=== PATIENT | male | born 1945 ===

== ENCOUNTER 2016-10-02 11:04 | Inpatient (IN) | payer MEDICARE, MEDICAID ==
[2016-10-02 11:20] VITALS: BMI 26.5
[2016-10-02 12:15] LABS: ADD MANUAL DIFF? NO
--- NOTE | 2016-10-02 12:15 | ED PDOC ---
Arrival/HPI - General Chief Complaint: Psychiatric Evaluation Time Seen by Provider: 10/02/16 11:30 Historian: Patient, Detention, EMS - History of Present Illness Narrative History of Present Illness (Text): 10/02/16 11:55 A 71 year old male is brought into the emergency department via EMS from [facility] for suicidal ideation. According to care home the patient became violent and had combative behavior. Patient states he became violent because he was upset about not receiving his full disability check. Patient denies any fever, chills, or other physical complaints. PMD: Dr. Javier Time/Duration: Prior to Arrival Symptom Onset: Sudden Symptom Course: Other Quality: Other Activities at Onset: Rest Context: Home Past Medical History - Provider Review Nursing Documentation Reviewed: Yes - Neurological Hx Dementia: Yes Hx Syncope: Yes Other/Comment: hydrocephalus, senior svp shunt - Psychiatric Hx Substance Use: (unable to obtain) Other/Comment: Schizoaffective disorder Family/Social History - Physician Review Nursing Documentation Reviewed: Yes Family/Social History: Unknown Family HX Smoking Status: Unknown If Ever Smoked Hx Alcohol Use: (unable to obtain) Hx Substance Use: (unable to obtain) Allergies/Home Meds Allergies/Adverse Reactions: Allergies No Known Allergies Allergy (Verified 10/02/16 11:37) Home Medications: Home Meds Medication Instructions Recorded Confirmed Acetaminophen [Non-Aspirin Pain 650 mg PO PRN PRN 10/02/16 10/02/16 Relief] Donepezil [Aricept] 10 mg PO HS 10/02/16 10/02/16 LORazepam [Ativan] 2 mg PO BID 10/02/16 10/02/16 Quetiapine Fumarate [Seroquel] 25 mg PO HS 10/02/16 10/02/16 Quetiapine Fumarate [Seroquel] 100 mg PO HS 10/02/16 10/02/16 Review of Systems - Physician Review All systems were reviewed & negative as marked: Yes - Review of Systems Constitutional: absent: Fevers Respiratory: absent: SOB Cardiovascular: absent: Chest Pain Gastrointestinal: absent: Abdominal Pain Physical Exam Vital Signs Reviewed: Yes Vital Signs Temp Pulse Resp BP Pulse Ox 10/02/16 17:23 65 18 128/68 96 10/02/16 16:31 66 18 131/65 95 10/02/16 15:20 65 18 133/63 95 10/02/16 13:02 68 18 135/65 95 10/02/16 11:19 98.3 F 70 16 138/67 95 Temperature: Afebrile Blood Pressure: Normal Pulse: Regular Respiratory Rate: Normal Appearance: Positive for: Well-Appearing, Non-Toxic, Comfortable Pain Distress: None Mental Status: Positive for: Alert and Oriented X 3 - Systems Exam Head: Present: Atraumatic, Normocephalic, Other (ventric compressible) Pupils: Present: PERRL Extroacular Muscles: Present: EOMI Conjunctiva: Present: Normal Mouth: Present: Moist Mucous Membranes Neck: Present: Normal Range of Motion Respiratory/Chest: Present: Clear to Auscultation, Good Air Exchange. No: Respiratory Distress, Accessory Muscle Use Cardiovascular: Present: Regular Rate and Rhythm, Normal S1, S2. No: Murmurs Abdomen: Present: Normal Bowel Sounds. No: Tenderness, Distention, Peritoneal Signs Back: Present: Normal Inspection Upper Extremity: Present: Normal Inspection. No: Cyanosis, Edema Lower Extremity: Present: Normal Inspection. No: Edema Neurological: Present: GCS=15, CN II-XII Intact, Speech Normal Skin: Present: Warm, Dry, Normal Color. No: Rashes Psychiatric: Present: Alert, Oriented x 3, Normal Insight, Normal Concentration Medical Decision Making ED Course and Treatment: 10/02/16 11:55 Impression: A 71 year old male sent in for aggressive behaviour. Plan: -- EKG -- Chest X-ray -- Labs -- Urinalysis Progress Notes: EKG: Ordered, reviewed, and independently interpreted the EKG. Rate : 66 BPM Rhythm : NSR Interpretation : Normal interval, Normal [place], No ST/T changes. Comparison : No previous EKG for comparison. 10/02/16 12:34 Patient is medically cleared for psychiatric evaluation. 10/02/16 12:42 Chest X-ray: Creator : Ya Gould V. COMPARISON: No prior. FINDINGS: LUNGS: No consolidation. Left paratracheal calcified lymph node versus name left apical granuloma 1.2 cm. Calcified left thyroid nodules another consideration PLEURA: No significant pleural effusion identified, no pneumothorax apparent. CARDIOVASCULAR: Normal heart size. Pulmonary vasculature appears are borderline increased. Right internal jugular vein catheter tip in superior vena cava - right atrial junction. OSSEOUS STRUCTURES: Mild bilateral shoulder arthrosis. Moderate thoracic spondylosis VISUALIZED UPPER ABDOMEN: Normal. OTHER FINDINGS: Left paratracheal calcified lymph node versus name left apical granuloma 1.2 cm. A calcified left thyroid nodules.another consideration IMPRESSION: No consolidation. Probable mild pulmonary venous congestion. Central line as above. No pneumothorax. Probable left paratracheal calcified lymph node. A calcified left thyroid nodule is another consideration . 10/02/16 14:[address]: Creator : Mayur Mckenzie MD COMPARISON: None available. FINDINGS: HEMORRHAGE: No intracranial hemorrhage. BRAIN: No mass effect or edema. No atrophy or chronic microvascular ischemic changes. VENTRICLES: Unremarkable. No hydrocephalus. There is a ventricular shunt from a right parietal approach the crosses the lateral ventricles and terminates on the left. CALVARIUM: Unremarkable. PARANASAL SINUSES: Unremarkable as visualized. No significant inflammatory changes. MASTOID AIR CELLS: Unremarkable as visualized. No inflammatory changes. OTHER FINDINGS: None. IMPRESSION: No acute findings 10/02/16 14:30 Shuntogram: Creator : Mayur Mckenzie MD COMPARISON: FINDINGS: There is no evidence of a kink or fracture in the shunt catheter. Catheter terminates in the right upper quadrant of the abdomen IMPRESSION: Negative study 10/02/16 16:58 Patient is comfortable and in no acute distress. CXR reading by radiologist says central line but patient does not have a central line. Patient does have a ventric. A shuntagram was completed and it's a negative study. There is a normal CT and good compression of ventric. Patient denies any pain. PES is pending [facility] Screening. 10/02/16 18:55 Case signed out to Dr. Frank to f/u PES screening and reevaluate. - Lab Interpretations Lab Results: 10/02/16 12:02 10/02/16 12:02 Lab Results 10/02/16 12:02: Alcohol, Quantitative < 10 10/02/16 12:02: Salicylates < 1 L, Acetaminophen < 10.0 L 10/02/16 12:02: Sodium 143, Potassium 4.2, Chloride 101, Carbon Dioxide 31, Anion Gap 15, BUN 18, Creatinine 1.1, Est GFR ( Amer) > 60, Est GFR (Non- Af Amer) > 60, Random Glucose 93, Calcium 10.1, Total Bilirubin 0.6, AST 20, ALT 28, Alkaline Phosphatase 82, Total Creatine Kinase 51, Total Protein 8.1, Albumin 4.5, Globulin 3.6, Albumin/Globulin Ratio 1.3 10/02/16 12:02: WBC 7.4, RBC 4.33, Hgb 13.5 L, Hct 40.7 L, MCV 94.0, MCH 31.2, MCHC 33.2, RDW 14.9 H, Plt Count 258, MPV 11.2 H, Gran % 65.5, Lymph % (Auto) 20.5 L, [place] % (Auto) 12.1 H, Eos % (Auto) 1.6, Baso % (Auto) 0.3, Gran # 4.82, Lymph # 1.5, [place] # 0.9 H, Eos # 0.1, Baso # 0.02 I have reviewed the lab results: Yes - RAD Interpretation Radiology Orders: 10/02/16 12:03 CHEST PORTABLE [RAD] Stat 10/02/16 12:57 HEAD W/O CONTRAST [CT] Stat 10/02/16 13:00 SHUNTOGRAM [RAD] Stat - Scribe Statement The provider has reviewed the documentation as recorded by the Elenaibe Adrienne Vaughn Provider Scribe Attestation: All medical record entries made by the Scribe were at my direction and personally dictated by me. I have reviewed the chart and agree that the record accurately reflects my personal performance of the history, physical exam, medical decision making, and the department course for this patient. I have also personally directed, reviewed, and agree with the discharge instructions and disposition. Disposition/Present on Arrival - Present on Arrival Any Indicators Present on Arrival: No History of DVT/PE: No History of Uncontrolled Diabetes: No Urinary Catheter: No History of Decub. Ulcer: No History Surgical Site Infection Following: None - Disposition Have Diagnosis and Disposition been Completed?: No Diagnosis: Psychiatric care Disposition Time: 18:57 Condition: FAIR Referrals: Blanquita Holley MD [Primary Care Provider] - Follow up with primary
[2016-10-02 12:20] LABS: BASO # 0.02 K/mm3 (0.0-2.0); BASO % 0.3 % (0.0-3.0); EOS # 0.1 (0.0-0.7); EOS % 1.6 % (1.5-5.0); GRAN # 4.82 (1.4-6.5); GRAN % 65.5 % (50.0-68.0); HEMATOCRIT 40.7 % (42.0-52.0); LYMPH # 1.5 (1.2-3.4); LYMPH % 20.5 % (22.0-35.0); MEAN CORPUSCULAR HEMOGLOBIN 31.2 pg (25.0-35.0); MEAN CORPUSCULAR HGB CONC 33.2 g/dl (31.0-37.0); MEAN PLATELET VOLUME 11.2 fl (7.0-11.0); MONO # 0.9 (0.1-0.6); MONO % 12.1 % (1.0-6.0); PLATELET COUNT 258 10^3/uL (120.0-450.0); RED CELL DISTRIBUTION WIDTH 14.9 % (11.5-14.5); WHITE BLOOD COUNT 7.4 10^3/ul (4.5-11.0)
[2016-10-02 12:30] LABS: ALB/GLOB RATIO 1.3 (1.1-1.8); ALKALINE PHOSPHATASE 82 U/L (38-133); ALT/SGPT 28 U/L (7-56); AST/SGOT 20 U/L (15-59); BILIRUBIN,TOTAL 0.6 mg/dL (0.2-1.3); BLOOD UREA NITROGEN 18 mg/dL (7-21); CALCIUM 10.1 mg/dL (8.4-10.5); CARBON DIOXIDE 31 mmol/L (21-33); CHLORIDE 101 mmol/L (98-107); GFR AFRICAN-AMERICAN > 60; GLUCOSE,RANDOM 93 mg/dL (70-110); POTASSIUM 4.2 mmol/L (3.6-5.0); SODIUM 143 mmol/L (132-148); TOTAL PROTEIN 8.1 g/dL (5.8-8.3)
--- NOTE | 2016-10-02 12:43 | RAD ---
HISTORY: psych COMPARISON: No prior. FINDINGS: LUNGS: No consolidation. Left paratracheal calcified lymph node versus name left apical granuloma 1.2 cm. Calcified left thyroid nodules another consideration PLEURA: No significant pleural effusion identified, no pneumothorax apparent. CARDIOVASCULAR: Normal heart size Pulmonary vasculature appears are borderline increased. Right internal jugular vein catheter tip in superior vena cava - right atrial junction. OSSEOUS STRUCTURES: Mild bilateral shoulder arthrosis. Moderate thoracic spondylosis VISUALIZED UPPER ABDOMEN: Normal. OTHER FINDINGS: Left paratracheal calcified lymph node versus name left apical granuloma 1.2 cm. A calcified left thyroid nodules.another consideration IMPRESSION: No consolidation. Probable mild pulmonary venous congestion. Central line as above. No pneumothorax. Probable left paratracheal calcified lymph node. A calcified left thyroid nodule is another consideration .
--- NOTE | 2016-10-02 14:00 | CT ---
PROCEDURE: CT HEAD WITHOUT CONTRAST. HISTORY: agitation COMPARISON: None available. TECHNIQUE: Axial computed tomography images were obtained through the head/brain without intravenous contrast. Radiation dose: Total exam DLP = 688 mGy-cm. This CT exam was performed using one or more of the following dose reduction techniques: Automated exposure control, adjustment of the mA and/or kV according to patient size, and/or use of iterative reconstruction technique. FINDINGS: HEMORRHAGE: No intracranial hemorrhage. BRAIN: No mass effect or edema. No atrophy or chronic microvascular ischemic changes. VENTRICLES: Unremarkable. No hydrocephalus. There is a ventricular shunt from a right parietal approach the crosses the lateral ventricles and terminates on the left. CALVARIUM: Unremarkable. PARANASAL SINUSES: Unremarkable as visualized. No significant inflammatory changes. MASTOID AIR CELLS: Unremarkable as visualized. No inflammatory changes. OTHER FINDINGS: None. IMPRESSION: No acute findings
--- NOTE | 2016-10-02 14:27 | RAD ---
PROCEDURE: Shuntogram HISTORY: evaluuate shunt placement COMPARISON: TECHNIQUE: AP and lateral views of the skull and neck and AP views of the chest and abdomen were obtained to evaluate shunt integrity FINDINGS: There is no evidence of a kink or fracture in the shunt catheter. Catheter terminates in the right upper quadrant of the abdomen IMPRESSION: Negative study
--- NOTE | 2016-10-02 19:37 | ED PDOC ---
Physical Exam Vital Signs Reviewed: Yes Vital Signs Temp Pulse Resp BP Pulse Ox 10/03/16 06:00 72 18 136/72 96 10/03/16 02:31 97.6 F 64 18 140/75 98 10/02/16 23:46 51 L 16 129/72 98 10/02/16 19:04 64 18 125/69 96 10/02/16 17:23 65 18 128/68 96 10/02/16 16:31 66 18 131/65 95 10/02/16 15:20 65 18 133/63 95 10/02/16 13:02 68 18 135/65 95 10/02/16 11:19 98.3 F 70 16 138/67 95 Temperature: Afebrile Blood Pressure: Normal Pulse: Regular Respiratory Rate: Normal Appearance: Positive for: Well-Appearing, Non-Toxic, Comfortable Pain Distress: None Mental Status: Positive for: Alert and Oriented X 3 Medical Decision Making ED Course and Treatment: 10/02/16 19:30 Patient medically cleared prior. Pending PES evaluation and final disposition. 10/03/16 07:00 Pt. was seen and evaluated by [facility] screener.Not a candidate for transfer.Pt. to be reevaluated by psychiatrist Dr. Quintanilla in the ED as per PES.Case endorsed to . - Lab Interpretations Lab Results: 10/02/16 12:02 10/02/16 12:02 Lab Results 10/02/16 12:02: Alcohol, Quantitative < 10 10/02/16 12:02: Salicylates < 1 L, Acetaminophen < 10.0 L 10/02/16 12:02: Sodium 143, Potassium 4.2, Chloride 101, Carbon Dioxide 31, Anion Gap 15, BUN 18, Creatinine 1.1, Est GFR ( Amer) > 60, Est GFR (Non- Af Amer) > 60, Random Glucose 93, Calcium 10.1, Total Bilirubin 0.6, AST 20, ALT 28, Alkaline Phosphatase 82, Total Creatine Kinase 51, Total Protein 8.1, Albumin 4.5, Globulin 3.6, Albumin/Globulin Ratio 1.3 10/02/16 12:02: WBC 7.4, RBC 4.33, Hgb 13.5 L, Hct 40.7 L, MCV 94.0, MCH 31.2, MCHC 33.2, RDW 14.9 H, Plt Count 258, MPV 11.2 H, Gran % 65.5, Lymph % (Auto) 20.5 L, [place] % (Auto) 12.1 H, Eos % (Auto) 1.6, Baso % (Auto) 0.3, Gran # 4.82, Lymph # 1.5, [place] # 0.9 H, Eos # 0.1, Baso # 0.02 10/02/16 00:35: Urine Opiates Screen Negative, Urine Methadone Screen Negative, Ur Barbiturates Screen Negative, Ur Phencyclidine Scrn Negative, Ur Amphetamines Screen Negative, U Benzodiazepines Scrn Negative, U Oth Cocaine Metabols Negative, U Cannabinoids Screen Negative 10/02/16 00:35: Urine Color Yellow, Urine Appearance Clear, Urine pH 6.5, Ur Specific [place] 1.020, Urine Protein Negative, Urine Glucose (UA) Negative, Urine Ketones Negative, Urine Blood Small H, Urine Nitrate Negative, Urine Bilirubin Negative, Urine Urobilinogen 0.2, Ur Leukocyte Esterase Negative, Urine RBC 0 - 2, Urine WBC 0 - 2, Ur Epithelial Cells 0 - 2, Urine Other Usperm - RAD Interpretation Radiology Orders: 10/02/16 12:03 CHEST PORTABLE [RAD] Stat 10/02/16 12:57 HEAD W/O CONTRAST [CT] Stat 10/02/16 13:00 SHUNTOGRAM [RAD] Stat - Scribe Statement The provider has reviewed the documentation as recorded by the Muna Mckeon Provider Scribe Attestation: All medical record entries made by the Elenaibarthur were at my direction and personally dictated by me. I have reviewed the chart and agree that the record accurately reflects my personal performance of the history, physical exam, medical decision making, and the department course for this patient. I have also personally directed, reviewed, and agree with the discharge instructions and disposition. Disposition/Present on Arrival - Present on Arrival Any Indicators Present on Arrival: No History of DVT/PE: No History of Uncontrolled Diabetes: No Urinary Catheter: No History of Decub. Ulcer: No History Surgical Site Infection Following: None - Disposition Have Diagnosis and Disposition been Completed?: No Diagnosis: Psychiatric care Disposition Time: 07:20 Patient Problems: Current Active Problems Problem Status Onset Psychiatric care Acute Condition: STABLE Referrals: Blanquita Holley MD [Primary Care Provider] - Follow up with primary
[2016-10-03 01:05] LABS: PH,URINE 6.5 (4.7-8.0); URINE BILIRUBIN NEGATIVE (NEGATIVE); URINE BLOOD SMALL (NEGATIVE); URINE GLUCOSE (UA) NEGATIVE (NEGATIVE); URINE KETONE NEGATIVE (NEGATIVE); URINE LEUKOCYTE ESTERASE NEGATIVE Leu/uL (NEGATIVE); URINE PROTEIN NEGATIVE mg/dL (<30 mg/dL); URINE UROBILINOGEN 0.2 E.U./dL (<1 E.U./dL)
[2016-10-03 01:07] LABS: URINE APPEARANCE CLEAR (CLEAR); URINE COLOR YELLOW (YELLOW)
[2016-10-03 01:12] LABS: URINE EPITHELIAL CELLS 0 - 2 /hpf (0-5); URINE RBC 0 - 2 /hpf (0-2); URINE WBC 0 - 2 /hpf (0-6)
--- NOTE | 2016-10-03 07:57 | ED PDOC ---
Physical Exam Vital Signs Reviewed: Yes Vital Signs Temp Pulse Resp BP Pulse Ox 10/03/16 06:00 72 18 136/72 96 10/03/16 02:31 97.6 F 64 18 140/75 98 10/02/16 23:46 51 L 16 129/72 98 10/02/16 19:04 64 18 125/69 96 10/02/16 17:23 65 18 128/68 96 10/02/16 16:31 66 18 131/65 95 10/02/16 15:20 65 18 133/63 95 10/02/16 13:02 68 18 135/65 95 10/02/16 11:19 98.3 F 70 16 138/67 95 Temperature: Afebrile Blood Pressure: Normal Pulse: Regular Respiratory Rate: Normal Medical Decision Making ED Course and Treatment: 10/03/16 07:00 Patient endorsed to me by Dr. Frank. Pending evaluation by psychiatrist Dr. Quintanilla. 10/03/16 09:29 Dr. Ashley Le evaluated patient and recommended monitoring for altered mental status and psych. Patient accepted by Dr. Boykin for altered mental status. - Lab Interpretations Lab Results: 10/02/16 12:02 10/02/16 12:02 Lab Results 10/02/16 12:02: Alcohol, Quantitative < 10 10/02/16 12:02: Salicylates < 1 L, Acetaminophen < 10.0 L 10/02/16 12:02: Sodium 143, Potassium 4.2, Chloride 101, Carbon Dioxide 31, Anion Gap 15, BUN 18, Creatinine 1.1, Est GFR ( Amer) > 60, Est GFR (Non- Af Amer) > 60, Random Glucose 93, Calcium 10.1, Total Bilirubin 0.6, AST 20, ALT 28, Alkaline Phosphatase 82, Total Creatine Kinase 51, Total Protein 8.1, Albumin 4.5, Globulin 3.6, Albumin/Globulin Ratio 1.3 10/02/16 12:02: WBC 7.4, RBC 4.33, Hgb 13.5 L, Hct 40.7 L, MCV 94.0, MCH 31.2, MCHC 33.2, RDW 14.9 H, Plt Count 258, MPV 11.2 H, Gran % 65.5, Lymph % (Auto) 20.5 L, [place] % (Auto) 12.1 H, Eos % (Auto) 1.6, Baso % (Auto) 0.3, Gran # 4.82, Lymph # 1.5, [place] # 0.9 H, Eos # 0.1, Baso # 0.02 10/02/16 00:35: Urine Opiates Screen Negative, Urine Methadone Screen Negative, Ur Barbiturates Screen Negative, Ur Phencyclidine Scrn Negative, Ur Amphetamines Screen Negative, U Benzodiazepines Scrn Negative, U Oth Cocaine Metabols Negative, U Cannabinoids Screen Negative 10/02/16 00:35: Urine Color Yellow, Urine Appearance Clear, Urine pH 6.5, Ur Specific [place] 1.020, Urine Protein Negative, Urine Glucose (UA) Negative, Urine Ketones Negative, Urine Blood Small H, Urine Nitrate Negative, Urine Bilirubin Negative, Urine Urobilinogen 0.2, Ur Leukocyte Esterase Negative, Urine RBC 0 - 2, Urine WBC 0 - 2, Ur Epithelial Cells 0 - 2, Urine Other Usperm - RAD Interpretation Radiology Orders: 10/02/16 12:03 CHEST PORTABLE [RAD] Stat 10/02/16 12:57 HEAD W/O CONTRAST [CT] Stat 10/02/16 13:00 SHUNTOGRAM [RAD] Stat - Medication Orders Current Medication Orders: Donepezil HCl (Aricept) 10 mg PO HS KATHERYN Quetiapine Fumarate (Seroquel) 150 mg PO HS KATHERYN PRN Reason: Protocol Valproate Sodium (Depakene) 250 mg PO TID KATHERYN Ziprasidone (Geodon Inj) 20 mg IM Q8H PRN; Protocol PRN Reason: severe agiation Zolpidem Tartrate (Ambien) 5 mg PO HS PRN; Protocol PRN Reason: Insomnia Discontinued Medications Diphenhydramine HCl (Benadryl) 25 mg IM STAT STA Stop: 10/03/16 08:49 Last Admin: 10/03/16 09:10 Dose: 25 mg Ziprasidone (Geodon Inj) 20 mg IM STAT STA PRN Reason: Protocol Stop: 10/03/16 08:39 Last Admin: 10/03/16 09:10 Dose: 20 mg Disposition/Present on Arrival - Present on Arrival Any Indicators Present on Arrival: No History of DVT/PE: No History of Uncontrolled Diabetes: No Urinary Catheter: No History of Decub. Ulcer: No History Surgical Site Infection Following: None - Disposition Have Diagnosis and Disposition been Completed?: Yes Diagnosis: Psychiatric care, Altered mental status Disposition Time: 09:30 Patient Plan: Admission Patient Problems: Current Active Problems Problem Status Onset Psychiatric care Acute Condition: FAIR Referrals: Blanquita Holley MD [Primary Care Provider] - Follow up with primary
[2016-10-03] MEDS ORDERED: DiphenhydrAMINE 50 mg/ml Inj IM STA (08:48)
[2016-10-03 13:21] LABS: T4 8.8 ug/dL (5.5-11.0)
[2016-10-03 13:35] LABS: THYROID STIMULATING HORMONE 1.56 mIU/mL (0.46-4.68)
--- NOTE | 2016-10-03 13:50 | CON ---
DATE: 10/03/2016 HISTORY OF PRESENT ILLNESS: Shortly, the patient is a 71-year-old male who was [facility] jail for evaluation of altered mental status as well as psychotic symptoms and possible swain icidal or homicidal ideations. The patient refused to sign consent for treatment. At the same time, the patient lacks capacity to do so. This commercial insurance underwriter initiated [facility] screening pro cess. The patient was evaluated and was not accepted by them. At present moment, this commercial insurance underwriter had no other choice than suggest medical admission for altered mental status. The patient was seen in the Emergency Room today together with Dr. Martinez. The patient presented to be confused, agitated, has soft wrist restraints. The patient is acutely psychotic, said that he is [place] of God. Also the rachel ent is paranoid, saying that people are after him and they are going to kill him and before they will do so, he will kill people. At the same time, the patient presented with pressured speech. As per report from the jail, the patient has history of bipolar disorder. The patient was on Seroqu el 125 mg at the nighttime. Medical-martin the patient is having Alzheimer's dementia. The patient is on Aricept. This commercial insurance underwriter reviewed vital signs, seems to be stable. Temperature 97.6, pulse 72, blood pressure 136 /72, respiration 18, oxygen saturation 96. MEDICATIONS: Reviewed. The patient was on Seroquel 125 mg at the nighttime and Aricept 10 mg at the nighttime. This commercial insurance underwriter also will implement Depakote 250 three times a day as well as Ambien as well as p.r.n. medication of Geodon and Ativan and Benadryl. The patient is in acute distress, screaming and yelling at top of his lungs; seems to be a danger to self and others. Will give him an injection of Geodon 20 mg as well as Benadryl. MENTAL STATUS EXAMINATION: The patient presented to be in acute distress, agitated, screaming, yelli ng. The patient was not able to provide any history. The patient presented to be psychotic, delusio nal and paranoid, verbalized thoughts of killing others and killing himself. Insight and judgment ar e lacking. Impulses are unpredictable. IMPRESSION: Altered mental status. Rule out acute exacerbation of bipolar disorder with psychosis. The patient has Alzheimer's dementia. PLAN: Suggest medical admission because patient lacks capacity to sign himself in. Medications were ordered, p.r.n. medication will be given. Seroquel was increased to 150 at the night time, Depakote 250 mg 3 times a day as well as Ativan, Benadryl, and Ambien. This commercial insurance underwriter will follow up on this pa tient on the medical side. Thank you very much for letting me participate in care of your patient. Ashley Mojica MD cc: [id number] TT: 10/03/2016 13:49:47 Confirmation # [id number] Dictation # [id number] jn
--- NOTE | 2016-10-03 15:33 | HP ---
HISTORY OF PRESENT ILLNESS: This 71-year-old male was examined in the Emergency Room, having presented to the [facility] almost 24 hours earlier for evaluation of agitation. Apparently upon further discussion with Dr. Ashley Mojica, the psychiatrist, she was unable to have the patient involuntarily admitted to the [facility] psychiatric berry and states that he could not be admitted to the [facility] voluntary berry because, in an acute psychotic state, he would not sign admission papers. Therefore, the patient will be admitted to the medical/surgical berry with a 1:1 sitter for psychiatric treatment of his acute psychosis. The patient apparently is a resident of the [facility] in [place], [place] , near the [facility] and was brought by emergency transport to [facility] for further evaluation of agitation. On review of his medical chart, his outpatient medication includes Seroquel 150 mg p.o. at bedtime, Ativan 2 mg b.i.d., Aricept 10 mg at bedtime. ALLERGIES: On review of the chart, he has no known allergies to medication. He is a poor historian. He is acutely psychotic. REVIEW OF SYSTEMS: On further questioning: HEAD: Denied headache. EYES: Denied any change in visual acuity. EARS: There was no hearing loss. THROAT: There was no swallowing difficulty. NECK: There was no stiffness. CARDIOVASCULAR: There was no complaint of chest pain or shortness of breath. PULMONARY: No hemoptysis. GASTROINTESTINAL: No hematemesis or melena. GENITOURINARY: He was incontinent of urine. VASCULAR: No reports of claudication. PSYCHOLOGICAL: He has chronic paranoid schizophrenia and psychosis as well as dementia with agitation. NEUROLOGICAL: No knowledge of stroke. ENDOCRINE: No reports of diabetes. SKIN: No reports of rash. FAMILY HISTORY: Noncontributory. SOCIAL HISTORY: He is a current nondrinker, nonsmoker, non-IV drug misuser. He is a long-term resident of [facility]. PHYSICAL EXAMINATION: VITAL SIGNS: Temperature 98, respirations 16, pulse 68, blood pressure 128/88 with a pulse ox of 99% on room air. HEENT: Head is normocephalic, atraumatic. Eyes: No icterus. Ears clear. Throat not injected. NECK: Supple. HEART: Regular S1, S2. LUNGS: Clear. ABDOMEN: Soft, nontender, no palpable organomegaly, no rebound, no guarding, no tenderness. EXTREMITIES: No clubbing, no cyanosis, no edema. SKIN: Without rash. NEUROLOGIC: Able to move all 4 extremities. PSYCHOLOGICAL: Easily agitated, acutely psychotic. VASCULAR: Legs warm to touch. LABORATORY DATA: White count 7400, hemoglobin 13.5, hematocrit 40.7, MCV 94 and platelets 258,000. Sodium 143, K 4.2, chloride 101, bicarb 31, BUN 18, creatinine 1.1, random blood sugar is 93. Bilirubin 0.6, AST 20, ALT 28, alk phos 82. Urine was unremarkable and drug toxicology screen was negative. Head CT showed no acute findings. Chest x-ray showed no consolidation, no pneumothorax, questionable left thyroid calcified nodule. Shuntogram done by Dr. Mayur Correa from radiology showed no fracture of the shunt catheter. IMPRESSION: A 71-year-old male with long time paranoid schizophrenia, psychosis , now with decompensated psychosis in need of psychiatric intervention who was unable to find voluntary admission and was not accepted for involuntary admission at the [facility], who will be placed on the medical berry with a 1:1 sitter and have all psychotropics outlined by Dr. Ashley Mojica which, at present, include Seroquel 150 mg p.o. at bedtime, Geodon 20 mg IM q. 8 hours p.r.n. agitation. The patient was given a stat dose of Geodon 20 mg IM this a.m. Valproic acid 250 mg p.o. b.i.d., Aricept 10 mg at bedtime and Ambien 5 mg p.o. at bedtime p.r.n. insomnia. She will monitor his clinical progress and hopefully accept him to the psychiatric berry when clinically stable. His overall prognosis remains guarded at present and he will be treated in a conservative, compassionate, supportive way. Greater than fifty minutes was spent in the care of this patient today. All of this has been discussed in detail with the nursing staff involved in his care. Celeste Boykin MD cc: [id number] TT: 10/03/2016 15:31:53 tn MTDD
[2016-10-03] MEDS ORDERED: Pneumococcal 23-Valent Vaccine IM ONE (19:03)
--- NOTE | 2016-10-03 23:29 | CARD ---
APPROVED REPORT EKG Measurement Heart [id number] <Conclusion> Normal sinus rhythm Normal ECG
--- NOTE | 2016-10-04 04:10 | CP.PCM.PN ---
Subjective - Date & Time of Evaluation Date of Evaluation: 10/04/16 Time of Evaluation: 04:08 - Subjective Subjective: Nurse Olman called to renew bilateral wrist restraints. Patient was seen at bedside. States that he is in [place]. As per Sitter,he had been combative in the previous shift. Has been quiet this shift. Tries to get out bed. Yells. Pulling. Intermittently. 71 year old male was admitted for agitation. Has PMH of psychosis, paranoid schizophrenia, borderline anemia, Alzheimer's dementia. Objective - Vital Signs/Intake and Output Vital Signs (last 24 hours): Temp Pulse Resp BP Pulse Ox 98.0 F 68 16 128/88 96 10/03/16 18:42 10/03/16 18:42 10/03/16 18:42 10/03/16 18:42 10/03/16 10:42 Intake and Output: 10/03/16 10/04/16 18:59 06:59 Output Total 500 Balance -500 - Medications Medications: Current Medications Donepezil HCl (Aricept) 10 mg PO HS KATHERYN Last Admin: 10/03/16 21:53 Dose: 10 mg Quetiapine Fumarate (Seroquel) 150 mg PO HS KATHERYN PRN Reason: Protocol Last Admin: 10/03/16 21:53 Dose: 150 mg Valproate Sodium (Depakene) 250 mg PO TID KATHERYN Last Admin: 10/03/16 18:41 Dose: Not Given Ziprasidone (Geodon Inj) 20 mg IM Q8H PRN; Protocol PRN Reason: severe agiation Last Admin: 10/03/16 16:20 Dose: 20 mg Zolpidem Tartrate (Ambien) 5 mg PO HS PRN; Protocol PRN Reason: Insomnia Last Admin: 10/03/16 21:54 Dose: 5 mg - Constitutional Appears: No Acute Distress - Head Exam Head Exam: ATRAUMATIC, NORMAL INSPECTION, NORMOCEPHALIC - Eye Exam Eye Exam: Normal appearance - ENT Exam ENT Exam: Normal External Ear Exam - Neck Exam Neck Exam: Normal Inspection - Respiratory Exam Respiratory Exam: NORMAL BREATHING PATTERN - Cardiovascular Exam Cardiovascular Exam: absent: JVD - GI/Abdominal Exam GI & Abdominal Exam: absent: Distended - Rectal Exam Rectal Exam: Deferred - Extremities Exam Extremities Exam: Normal Inspection - Back Exam Back Exam: NORMAL INSPECTION - Neurological Exam Neurological Exam: Altered - Psychiatric Exam Psychiatric exam: Agitated - Skin Skin Exam: Normal Color Assessment and Plan - Assessment and Plan (Free Text) Assessment: Intermittent agitation. Alzheimer's dementia. Anemia. Paranoid schizophrenia. Plan: Bilateral wrist restraints were renewed. Continue present management.
[2016-10-04 10:34] VITALS: BP 132/79; PULSE 61; RESP 18; TEMP 98.4; O2SAT 94
--- NOTE | 2016-10-04 15:42 | PN ---
DATE: 10/04/2016 Shortly, the patient is a 71-year-old male. The patient was transferred from the nursing [facility] for evaluation of agitated behavior. The patient was acutely paranoid. The patient was seen init ially yesterday in the Emergency Room. The patient was in 2-point restraints. The patient needed to be medicated with IM. The patient was feeling that he is [place] of God and people are after him. The patient was presented to be agitated, aggressive. The patient's medications were adjusted. Seroque l was increased to 150 mg at the nighttime, ____ 250 mg 3 times daily scheduled, and Geodon was start ed as needed. The patient was followed up today by this fiction writer. The patient presented to be much calmer, but still loud, seemed to be paranoid and disorganized. The patient does not know where he is, and does not r emember this fiction writer. The patient was repeating, "I am here, they are there." The patient was not ab le to corroborate who are they. The patient is on 1:1. As per 1:1 report, overnight patient was adis tated, needed to be in restraints and medicated. The patient does not have POA and is not having [facility] to sign himself in because patient will be not able to process information about admission, medi cation management. Moreover, patient has poor insight and feels that nothing is wrong with him. VITAL SIGNS: Reviewed, stable. Temperature 98.4, pulse is 61, blood pressure 132/69, respirations 1 8, oxygen saturation 94. MEDICATIONS: Reviewed. The patient is on Aricept 10 mg at the nighttime, Seroquel 150 mg at the nig httime which will be increased to 200 mg, ____ will be increased to 500 mg in the morning time and at the nighttime, Geodon 20 mg IM q. 8 hours p.r.n. for severe agitation, and Ambien 5 mg at the nightt syeda p.r.n. for insomnia. LABORATORY DATA: Reviewed. Chemistry reviewed. Toxicology reviewed. MENTAL STATUS EXAMINATION: The patient presented to be alert, disoriented, does not know that he is in [facility]. The patient was not able to recognize this fiction writer. Intermittent eye contact. Speech: The patient was loud, over productive speech. Mood described as, "I'm fine." Thought proce ss: Disorganized, circumstantial. Thought content: The patient presented to be grandiose, was feel ing that he is [place] of [employer]. The patient also has paranoid ideation that people are after him. Insig ht and judgment are impaired. Impulses are unpredictable but better controlled. IMPRESSION: The patient has Alzheimer's dementia. The patient also has psychotic symptoms, rule out delirium. PLAN: The patient's medications adjusted. Seroquel 200 mg was increased today. The patient was sta rted on ____ yesterday; that will be increased to 500 mg in the morning time and at the nighttime for mood stabilization. The patient is currently on 1:1. The patient is on Aricept 10 mg daily, Ambien as needed for insomnia, p.r.n. medication Geodon IM. The patient was screened by [facility] in the Emergency Room but was not accepted. The patient has no capacity to sign himself int o the psychiatric inpatient unit. There are no other options other than to adjust his medications fr om the medical side. The patient deemed to have deviation from his baseline. There are few options from here; either patient will be improving and able to sign consent for treatment at the psychiatric inpatient unit or patient will be improving on the medical side and will be transferred back to his longterm. The patient will be seen by Dr. Lopez over the weekend. Should have any questions, gi ve me a call back. The patient is currently on 1:1. Mild improvement to compare with yesterday. Thank you very much for allowing me to participate in the care of your patient. Ashley Mojica MD cc: [id number] TT: 10/04/2016 14:57:09 Confirmation # [id number] Dictation # [id number] tamera
--- NOTE | 2016-10-04 16:44 | PN ---
DATE: 10/04/2016 ADDENDUM: This fiction and nonfiction writer prose went back to reevaluate the patient together with the director social welfare, Gold Villatoro. We ut ilized PCP for translation. The patient said that he had been in the psychiatric facilities back in [facility]. The patient reported initially that he does not want to be in the hospital into the psychia tric inpatient unit. After explanation of treatment plan and medication management, the patient was able to process information. The patient is able to recognize that he has mood swings and he has some psychotic symptoms. The patient wants to be on the safe side. The patient wants medication to be a djusted. The patient knows that he is in the hospital. He knows that he wants to get better. At th e same time, the patient was able to process the information about medication with basic understandin g of treatment and was appreciative. Insight I would say improving, but patient has underlying demen tia. At the same time, early stage of dementia. The patient was able to indicate his preferences an d has reasoning abilities. At the moment of interview with the director social welfare, the patient was able t o sign consent looking for treatment into the psychiatric inpatient unit. Thank you very much for letting me participate in care of your patient. The patient will be accepted into the psychiatric inpatient unit under voluntary status. Ashley Mojica MD cc: [id number] TT: 10/04/2016 16:44:18 Confirmation # [id number] Dictation # [id number] sn
--- NOTE | 2016-10-04 19:57 | DS ---
FINAL DIAGNOSES: Acute psychosis, paranoid schizophrenia, agitation syndrome, dementia. DISPOSITION: Psychiatric berry at [facility]. DISCHARGE DIET: Soft, bland. DISCHARGE MEDICATIONS: Seroquel 150 mg p.o. at bedtime and Aricept 10 mg p.o. at bedtime, Ativan 2 mg p.o. b.i.d. SUMMARY: This is a 71-year-old male who was admitted to medical service because of altered mental status and need for one-to-one until the patient could become clear enough to sign voluntary admission to the psychiatric berry. All of this was reviewed with Dr. Ashley Mojica, the psychiatrist, who effected this outcome. At the time of his transfer, a thyroid ultrasound is still pending, which I will order on the psychiatric berry for completeness sake. His chest x-ray as read by Dr. Ya Samuel from radiology. She was concerned that a calcified left thyroid nodule was a possibility on chest x- ray. At the time of his discharge, his vital signs were temperature 98.4, respirations 18, pulse 61, blood pressure 132/79 and pulse ox 96% on room air. Laboratory showed white count 7400, hemoglobin 13.5, hematocrit 40.7, MCV 94, platelet count 258,000. Sodium 143, K 4.2, chloride 101, bicarb 31, BUN 18, creatinine 1.1, random blood sugar is 93. All liver function testing was normal , including bilirubin 0.6, AST 20, ALT 28, alkaline phosphatase 82. Thyroid testing was normal with T4 of 8.8 and TSH of 1.56. The patient is a senior living resident at the [facility] in [place], [place] near the [facility] where he is under the primary care of Dr. Holley, who will be resuming his medical followup regarding his medical needs upon discharge. There, he can have followup electrolytes, CBC and any additional workup entertained by Dr. Holley once he is psychologically stable. I will defer all of this to his care, but will follow up on thyroid ultrasounding prior to discharge. Celeste Boykin MD cc: [id number] TT: 10/04/2016 19:56:32 ln MTDD
== END 2016-10-04 16:54 | DRG 57 ==
LOC: ED 11:04 → ERH 10-03 09:25 → 3RNO 10-03 10:18 → ERH 10-03 10:19 → 3RNO 10-03 11:28
PROVIDERS: ADMIT Internal Medicine; ATTEND Internal Medicine
DX: G30.9 Alzheimer's disease, unspecified (principal); F02.80 Dementia in other diseases classified elsewhere, unspecified severity, without behavioral disturbance, psychotic disturbance, mood disturbance, and anxiety; D64.9 Anemia, unspecified; F20.0 Paranoid schizophrenia; Z78.1 Physical restraint status

== ENCOUNTER 2016-10-04 16:52 | Inpatient (IN) | payer MEDICARE, MEDICAID ==
[2016-10-04 17:04] VITALS: BMI 25.7
[2016-10-04] MEDS: QUEtiapine 200 mg XR Tab PO SCH (22:03)
[2016-10-04] MEDS: Divalproex 500 mg DR(BID formulation) PO SCH (22:03)
[2016-10-05] MEDS ORDERED: Alum-Mag Hydrox-Simethicone Susp (30 mL) PO PRN (02:53)
[2016-10-05] MEDS ORDERED: Magnesium Hydroxide Susp 30 ml UD PO PRN (02:53)
--- NOTE | 2016-10-05 09:59 | HP ---
Please note that most of the patient's history was obtained from Dr. Ashley Mojica's consultation. While the patient was in the medical unit, this patient was not cooperative during questioning even with the help of a compliance assistant, Karen Coleman. HISTORY OF PRESENT ILLNESS: The patient is a 71-year-old male who resides in [place] [facility] [place] and who was transferred for evaluation of agitated behavior as well as paranoia. The patient has re quired IM medications and restraints due to agitation behavior. Notes indicate that he had been delu sional, aggressive and required a 1:1 observation on the medical floor. After titration of medicatio ns he did appear to be calmer, more lucid and more oriented and was able to sign in voluntarily to [facility] psychiatric unit once he was medically cleared. On the psychiatric floor, the patient was in fair control when he arrived according to the notes. He was notably confused and disoriented, disorganize d and reported depressed mood and affect was constricted. The patient was also compliant with medica tions. When I arrived at the patient's bedside, he was in the middle of refusing a blood draw despite the lebotomist's repeated and gentle request. The patient appeared to be paranoid and angry and escalate d during my interview with him, even with utilization a category consultant. The patient kept referri ng to my questions as stupid and he could not tell me where he was, initially answering he was in [place] and changed it to [place]. The patient could not give me current month or year, or refused to give me this information and indicated that he does not need to answer my questions. He was quite labile, paranoid and upset and repeated that he did not need to be here. When I left his bedside, t he patient started yelling and became very loud and needs redirection. He initially did not appear t o be responding to repeated efforts; however, eventually he quieted down on the unit. The patient do es not appear to be in any physical distress. However, he did appear disorganized, paranoid, with __ __ thought process and was quite labile and notably unpredictable. Insight and judgment considered p oor. PSYCHIATRIC HISTORY AND SOCIAL HISTORY: Could not be obtained due to patient's paranoid mental statu s as well as his lack of cooperation. VITAL SIGNS: Yesterday by 10 p.m. were 98.4, 58, 139/84 and 17. No new labs overnight with patient now on the unit. CURRENT PSYCHIATRIC MEDICATIONS: Include Depakote b.i.d. 500 mg a.m. and at bedtime, Aricept 10 mg a t bedtime, Seroquel XR 200 mg at bedtime, Sonata 5 mg p.o. at bedtime p.r.n., Geodon 20 mg p.o. q. 8 p.r.n. ASSESSMENT: The patient has Alzheimer's dementia with behavioral disturbances, psychotic symptoms. Rule out the contribution of delirium. PLAN: 1. Group milieu for therapy as tolerated. 2. I will continue with Depakote 500 mg a.m. and at bedtime for mood control and to help with impuls e control. 3. Seroquel XR 200 mg at bedtime will be continued to help with paranoia and disorganization as well as mood control. 4. Sonata 5 mg p.o. at bedtime p.r.n. will be continued for insomnia. 5. I will continue Geodon 20 mg p.o. q. 8 p.r.n. for agitation as the patient's impulse control con tinues to be unpredictable. 6. Currently awaiting medical followup. 7. We will continue with 1:1 observation. Vickie Lopez MD cc: [id number] TT: 10/05/2016 09:59:23 jn
[2016-10-05] MEDS: Divalproex 500 mg DR(BID formulation) PO SCH ×2 (11:54→21:24)
[2016-10-05] MEDS: QUEtiapine 200 mg XR Tab PO SCH (21:24)
--- NOTE | 2016-10-06 01:41 | CON ---
DATE: 10/05/2016 HISTORY OF PRESENT ILLNESS: This is a 71-year-old male who was examined. He is now hospitalized in the psychiatric berry room 519, bed 2, with a 1 on 1 sitter in the setting of acute psychosis with chronic dementia, chronic paranoid schizophrenia and agitation syndrome. The patient upon transfer to the [facility] ER from his skilled nursing environment at the [facility] near [facility], was noted to be acutely psychotic and agitated and required parenteral Geodon therapy, as well as Depakote, Aricept, Seroquel and Ativan. At present, he is under the care of a 1:1 sitter. He remains agitated and confused and was noted on admission chest x- ray to have a questionable calcified thyroid nodule and has not been able to have a thyroid ultrasound to date given his altered mental status. REVIEW OF SYSTEMS: HEAD: No history of headache or seizure. EYES: No change in visual acuity. EARS: No hearing loss. THROAT: No swallowing difficulty. NECK: No stiffness. CARDIAC: No chest pain. PULMONARY: No hemoptysis. GASTROINTESTINAL: No hematemesis or melena. GENITOURINARY: No dysuria. SKIN: Without rash. NEUROLOGICAL: Agitated and history of dementia. VASCULAR: No reports of claudication. FAMILY HISTORY: Noncontributory. SOCIAL HISTORY: He is a current nondrinker, nonsmoker, non-IV drug misuser. ALLERGIES: He has no known allergies to medication. PHYSICAL EXAMINATION: Today showed: VITAL SIGNS: Temperature 98.4, respirations 17, pulse 58, blood pressure 139/ 84. HEENT: Head is normocephalic, atraumatic. Eyes: No icterus. Ears clear. Throat not injected. NECK: Supple. HEART: S1, S2. LUNGS: Clear. ABDOMEN: Soft. EXTREMITIES: No edema. SKIN: Without rash. NEUROLOGIC: Moves all extremities. PSYCHOLOGICAL: Agitated. VASCULAR: Legs warm to touch. LABORATORY DATA: White count 7400, hemoglobin 13.5, hematocrit 40.7, MCV 94, and platelets 258,000. Sodium 143, K 4.2, chloride 101, bicarb 31, BUN 18, creatinine 1.1, random blood sugar 93. All liver function testing normal including bilirubin 0.6, AST 20, ALT 28, alkaline phosphatase 82. T4 normal at 8.8. TSH normal 1.56. Urinalysis was unremarkable. Toxicology screen for drugs was unremarkable. IMPRESSION: A 71-year-old male with psychosis, paranoid schizophrenia, agitation syndrome, Alzheimer's dementia. PLAN: At present is to continue admission in the psychiatric berry with a 1:1 sitter. I have reordered the request for a thyroid ultrasound to rule out thyroid nodule. He will continue on medication including Aricept 10 mg at bedtime, Depakote 500 mg p.o. b.i.d., Geodon 20 mg p.o. q. 8 hours p.r.n. agitation, Seroquel 200 mg p.o. at bedtime and Sonata 5 mg p.o. at bedtime p.r.n. insomnia. He is on a regular diet and additional workup will be entertained based on his clinical progress. All of this has been reviewed with the nursing staff in detail. Celeste Boykin MD cc: [id number] TT: 10/06/2016 01:41:03 Confirmation # [id number] Dictation # [id number] tamera GOLDBERG
--- NOTE | 2016-10-06 08:59 | PCM.PYCHPN ---
Psychiatric Progress Note - Psychiatric Progress Note Patient seen today, length of contact: 25 min Patient Chief Complaint: "okay" Problems Identified/Issues Discussed: I reviewed recent notes and met with patient at bedside. Chinese translation was facilitated with the help of Michael Velez this morning. However it did become clear during the course of our interview that patient knows a little Occitan. Patient remains disoriented; he is completely aware of the location month or year this morning. Patient initially indicated a few times that he was at [place] [employer] though it's unclear whether he was joking or not. He's less irritable and defensive today however affect remains brittle. Patient reports feeling "okay" and denies any depression or suicidal thoughts. Patient is not hallucinating but he is delusional. He also seems paranoid. The process is disorganized, some of his responses are inconsistent and not always relevant to questioning. Presently if it is unclear whether he feel safe on the unit and whether he trusts staff members. Impulse control is unpredictable and his insight and judgment are poor. Diagnostic Results: Alzheimers dementia with behavioral disturbance and psychotic symptoms Medication Change: No Medical Record Reviewed: Yes (reports, labs, vitals, notes) Mental Status Examination - Cognitive Function Memory: Impaired Attention: Poor Concentration: Poor Association: Loose Fund of Knowledge: Poor - Mood Mood: Other ("okay") - Affect Affect: Broad, Other (labile) - Speech Speech: Loud - Formal Thought Process Formal Thought Process: Delusions, Paranoia, Loosening of associations - Suicidal Ideation Suicidal Ideation: No - Homicidal Ideation Homicidal Ideation: No Goal/Treatment Plan - Goal/Treatment Plan Need for Continued Stay: Remain at risks for inpatient hospitalization, Severe functional impairment Progress Toward Problem(s) and Goals/Treatment Plan: * c/w current tx and plan * Appreciate f/u by Dr. Boykin on 10/05/16~ordered thyroid ultrasound to r/o thyroid nodule * No new weekend labs * Vitals reviewed and noted below: Selected Entries 10/04/16 10/05/16 10/06/16 17:10 04:00 07:56 Temperature 98.4 F 97.1 F L Pulse Rate 58 L 62 66 Respiratory 17 20 Rate Blood Pressure 139/84 118/62 130/78
[2016-10-06] MEDS: Divalproex 500 mg DR(BID formulation) PO SCH ×2 (09:38→21:39)
[2016-10-06] MEDS: QUEtiapine 200 mg XR Tab PO SCH (21:39)
--- NOTE | 2016-10-06 23:01 | PN ---
DATE: 10/06/2016 HISTORY OF PRESENT ILLNESS: This 71-year-old male was examined at his bedside where he was being att ended to by a 1:1 sitter. The patient was acutely psychotic, speaking to himself and easily agitated . VITAL SIGNS: Temperature was 97.1, respirations 20, pulse 66 and blood pressure 130/78, pulse ox not recorded. PHYSICAL EXAMINATION: HEAD: Normocephalic, atraumatic. EYES: No icterus. EARS: Clear. THROAT: Noninjected. NECK: Supple. HEART: With S1, S2. LUNGS: Clear. ABDOMEN: Soft. EXTREMITIES: No edema. SKIN: Without rash. NEUROLOGIC: Intact. PSYCHOLOGICAL: Agitated and acutely psychotic. VASCULAR: Legs warm to touch. IMPRESSION: A 71-year-old male with agitation, insomnia, chronic paranoid schizophrenia and dementia . PLAN: To continue Aricept 10 mg p.o. at bedtime, Depakote 500 mg p.o. b.i.d., Geodon 20 mg p.o. q. 8 hours p.r.n. agitation. Seroquel 200 mg at bedtime, Sonata 5 mg p.o. at bedtime p.r.n. insomnia. Orlin gibson is scheduled for a thyroid ultrasound. He will continue on 1:1 observation for safety. He is bein g followed by psychiatry for medication adjustment and ultimate plan will be for him to return to [facility] for his [facility] care when psychologically more stable. Celeste Boykin MD cc: [id number] TT: 10/06/2016 23:01:03 Confirmation # [id number] Dictation # [id number] mn
[2016-10-07] MEDS: Divalproex 500 mg DR(BID formulation) PO SCH ×2 (09:06→21:42)
--- NOTE | 2016-10-07 12:47 | PN ---
DATE: 10/07/2016 This 71-year-old male was examined at his bedside with his 1 on 1 sitter present who stated that the patient appears calmer today and was eating, drinking, and voiding urine without difficulty. He is less agitated today. There have been no reports of acute psychosis this morning, and there are no reports of fever or chills. There were no reports of vomiting or diarrhea. PHYSICAL EXAMINATION: VITAL SIGNS: Temperature is 97.6, respirations 20, pulse 62, and blood pressure 130/73. HEAD: Normocephalic, atraumatic. EYES: No icterus. EARS: Clear. THROAT: Noninjected. NECK: Supple. HEART: S1, S2. LUNGS: Clear. ABDOMEN: Soft. EXTREMITIES: No edema. SKIN: Without rash. NEUROLOGIC: Unchanged. PSYCHOLOGICAL: Less agitated. VASCULAR: Legs warm to touch. Thyroid ultrasound completed, but not reported. IMPRESSION: A 71-year-old male with chronic dementia, agitation, paranoid schizophrenia, and insomnia. PLAN: At present is to maintain this patient in the psychiatric berry where he is being medicated and followed by psychiatry who is recommending Aricept 10 mg at bedtime, Depakote 500 mg b.i.d., Geodon 20 mg p.o. q. 8 hours p.r.n. agitation, Seroquel 200 mg at bedtime, Sonata 5 mg at bedtime p.r.n. insomnia. He continues on 1:1 observation. He continues on a soft diet. We will review the results of his thyroid ultrasound and make recommendations based on the above and his clinical progress. Ultimate plan is for him to return to his retirement care at residential under his PMD's direction, Dr. Holley, and his prognosis remains stable at present. Celeste Boykin MD cc: [id number] TT: 10/07/2016 12:46:13 Confirmation # [id number] Dictation # [id number] jn YUSUF
--- NOTE | 2016-10-07 13:52 | US ---
HISTORY: rule out nodule TECHNIQUE: Grayscale imaging was performed. COMPARISON: None FINDINGS: RIGHT LOBE: Measures 3.7 x 1.3 x 1 point cm. Small in size and heterogeneous echotexture with normal flow on color Doppler imaging. Nodules: There is a 6 x 5 x 5 mm hyperechoic nodule in the interpolar region. LEFT LOBE: Measures 4.7 x 1.6 x 1.8 cm. Normal in size with heterogeneous echotexture and normal flow on color Doppler imaging. Nodules: There is a 7 x 6 x 5 mm echogenic nodule in the upper pole. ISTHMUS: Measures 0.3 cm. Normal echotexture and flow. Nodules: None OTHER FINDINGS: None . IMPRESSION: Heterogeneous thyroid gland with solitary subcentimeter nodules in each lobe. Small right thyroid lobe.
--- NOTE | 2016-10-07 16:19 | PCM.PYCHPN ---
Psychiatric Progress Note - Psychiatric Progress Note Patient seen today, length of contact: 30min Patient Chief Complaint: "I am a good person, I don't want to harm self or others", (pt is [place]an speaking, utilized staff for translation). Problems Identified/Issues Discussed: Suicide/ homicide prevention, past psychiatric h/o, current psychiatric symptoms , medical problems, risk/benefits and alternatives of medications, medications compliance, coping strategies, substance abuse h/o, relapse prevention, importance of follow up with psychiatrist and therapist, discharge plan. Medical Problems: dementia thyroid nodule pt was seen by medical team Diagnostic Results: Vital Signs Temp Pulse Resp BP 10/07/16 07:58 97.6 F 62 20 130/73 10/06/16 16:26 62 145/83 10/06/16 07:56 97.1 F L 66 20 130/78 10/05/16 04:00 62 118/62 10/04/16 17:10 98.4 F 58 L 17 139/84 see labs from the medical admission DSM 5 Symptoms Update: Shortly pt is 71 yo male with reported h/o Alzheimer's dementia with behavioral disturbances, ?h/o bipolar disorder, ?multiple psychiatric admissions in the past, pt was sent from the [place] for evaluation change in mental status, being aggressive, agitated, psychotic in [place], was threatening to harm self and others. Pt was admitted to the medical side, was stabilized, then was transferred to the psych inpatient unit last Friday. pt was seen today at the treatment team meeting, pt knows that he is in the psychiatric inpatient unit, knows the year and season. pt said that he was admitted to the psych inpatient unit in the past, pt said that he is "good person, I do not want to harm myself or others". pt seems to have loud voice, but speech is less pressured. pt denied v/a/t hallucinations, denied paranoid ideation. pt tolerated meds well, no side effects observed or reported. as per staff pt needed to be medicated with geodon today. Impulse control is unpredictable and his insight and judgment are poor. Diagnostic Results: Alzheimers dementia with behavioral disturbance and psychotic symptoms ?h/o bipolar disorder Medication Change: No Medical Record Reviewed: Yes (reports, labs, vitals, notes) Consults ordered or reviewed: medical consult appreciated Mental Status Examination - Cognitive Function Orientation: Person, Place, Situation Memory: Impaired (chronic) Attention: Poor Concentration: Poor Association: Loose Fund of Knowledge: Poor - Mood Mood: Other ("okay") - Affect Affect: Broad, Other (labile) - Speech Speech: Loud - Formal Thought Process Formal Thought Process: Delusions, Paranoia, Loosening of associations - Suicidal Ideation Suicidal Ideation: No - Homicidal Ideation Homicidal Ideation: No Goal/Treatment Plan - Goal/Treatment Plan Need for Continued Stay: Remain at risks for inpatient hospitalization, Severe depression anxiety, Discharge may exacerbated symptoms, Severe functional impairment Progress Toward Problem(s) and Goals/Treatment Plan: milieu/structure/supportive therapy depakote 500mg bid for mood stabilization seroquel 200mg po hs for psychosis will continue all meds SW evaluatin will monitor closely Estimated Date of D/C: 10/11/16 (will monitor closely)
[2016-10-07] MEDS: QUEtiapine 200 mg XR Tab PO SCH (21:42)
[2016-10-08] MEDS: Divalproex 500 mg DR(BID formulation) PO SCH ×2 (09:40→21:03)
--- NOTE | 2016-10-08 14:33 | PN ---
DATE: 10/08/2016 This 71-year-old male was examined in the psychiatric berry of the [facility] where he appeared calm, but remained confused and paranoid. He is under the psychiatric care of Dr. Ashley Mojica who is following the patient for multiple problems including anxiety, agitation, hallucinations, paranoid schizophrenia, and delusional thought process. VITAL SIGNS: At present, temperature 97.9, respirations 20, pulse 65, and blood pressure 111/74. PHYSICAL EXAMINATION: HEAD: Normocephalic, atraumatic. EYES: No icterus. EARS: Clear. THROAT: Noninjected. NECK: Supple. HEART: S1, S2. LUNGS: Clear. ABDOMEN: Soft. EXTREMITIES: No edema. SKIN: Without rash. NEUROLOGIC: Intact. PSYCHOLOGICAL: Alert. VASCULAR: Legs warm to touch. LABORATORY DATA: Valproic acid level was 67, which is normal with a range of 50 -100. Thyroid ultrasound showed heterogeneous thyroid gland with subcentimeter nodules in each lobe. Previous T4, TSH levels were normal. Consultation with Dr. Omid Clayton regarding possible thyroid nodule biopsy is pending. IMPRESSION: A 71-year-old male, chronic paranoid schizophrenia, agitation, insomnia, psychosis with subcentimeter thyroid nodules bilaterally with normal TSH and T4 levels on recent blood testing. PLAN: To await consultation by Dr. Omid Clayton. He will continue on Aricept 10 mg p.o. at bedtime, Depakote 500 mg p.o. b.i.d., Seroquel 200 mg at bedtime, Sonata 5 mg p.o. at bedtime p.r.n. insomnia. Soft bland diet, 1:1 observation, and ultimate plan will be for this patient to return to the [facility] for his residential care under the direction of Dr. Holley. Overall prognosis remains stable, but poor. Celeste Boykin MD cc: [id number] TT: 10/08/2016 14:33:23 Confirmation # [id number] Dictation # [id number] jn YUSUF
--- NOTE | 2016-10-08 15:51 | PCM.PYCHPN ---
Psychiatric Progress Note - Psychiatric Progress Note Patient seen today, length of contact: 30min Patient Chief Complaint: "I don't remember you..." Problems Identified/Issues Discussed: Suicide/ homicide prevention, past psychiatric h/o, current psychiatric symptoms , medical problems, risk/benefits and alternatives of medications, medications compliance, coping strategies, substance abuse h/o, relapse prevention, importance of follow up with psychiatrist and therapist, discharge plan. Medical Problems: dementia thyroid nodule pt was seen by medical team Diagnostic Results: Vital Signs Temp Pulse Resp BP 10/07/16 07:58 97.6 F 62 20 130/73 10/06/16 16:26 62 145/83 10/06/16 07:56 97.1 F L 66 20 130/78 10/05/16 04:00 62 118/62 10/04/16 17:10 98.4 F 58 L 17 139/84 see labs from the medical admission Temp Pulse Resp BP Pulse Ox 97.9 F 65 20 111/74 10/08/16 08:13 10/08/16 08:13 10/08/16 08:13 10/08/16 08:13 DSM 5 Symptoms Update: Shortly pt is 71 yo male with reported h/o Alzheimer's dementia with behavioral disturbances, ?h/o bipolar disorder, ?multiple psychiatric admissions in the past, pt was sent from the [place] for evaluation change in mental status, being aggressive, agitated, psychotic in [place], was threatening to harm self and others. Pt was admitted to the medical side, was stabilized, then was transferred to the psych inpatient unit last Friday. pt was seen today at his room, pt said that he does not remember this poem writer, pt knows that he is in the psychiatric inpatient unit, knows the year and season. 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 daughter will visit pt tomorrow, will f/u on that. pt seems to have loud voice, but speech is less pressured, pt was on 1:1, but seems not having any behavioral issues, will d/c 1:1. pt denied v/a/t hallucinations, denied paranoid ideation. pt tolerated meds well, no side effects observed or reported. no prn so far, no agitation, no aggression. Impulse control is unpredictable and his insight and judgment are poor. Diagnostic Results: Alzheimers dementia with behavioral disturbance and psychotic symptoms ?h/o bipolar disorder Medication Change: No (seems improving) Medical Record Reviewed: Yes (reports, labs, vitals, notes) Consults ordered or reviewed: medical consult appreciated Mental Status Examination - Cognitive Function Orientation: Person, Place, Situation Memory: Impaired (chronic) Attention: Poor Concentration: Poor Association: Loose Fund of Knowledge: Poor - Mood Mood: Other ("okay") - Affect Affect: Broad, Other (labile) - Speech Speech: Loud - Formal Thought Process Formal Thought Process: Delusions, Paranoia, Loosening of associations - Suicidal Ideation Suicidal Ideation: No - Homicidal Ideation Homicidal Ideation: No Goal/Treatment Plan - Goal/Treatment Plan Need for Continued Stay: Remain at risks for inpatient hospitalization, Severe depression anxiety, Discharge may exacerbated symptoms, Severe functional impairment Progress Toward Problem(s) and Goals/Treatment Plan: milieu/structure/supportive therapy depakote 500mg bid for mood stabilization depakote level 67 10/08/16 seroquel 200mg po hs for psychosis will continue all meds SW evaluatin will monitor closely 1:1 discontinued family meeting scheduled tomorrow Estimated Date of D/C: 10/11/16 (will monitor closely)
--- NOTE | 2016-10-08 16:41 | CON ---
DATE: 10/08/2016 CHIEF COMPLAINT AND HISTORY OF PRESENT ILLNESS: I was asked by Dr. Boykin to review this patient's thyroid ultrasound. In brief, he is a 71-year-old gentleman who was admitted with an acute psychosis superimposed on chronic dementia. A thyroid ultrasound demonstrated nodules and I was asked to evaluate for potential biopsy. By report, his thyroid function tests are normal. His thyroid gland is heterogeneous in echotexture. There are several small nodules present, but no dominant or suspicious nodule is seen. No nodule meets the criteria for tissue sampling. A followup ultrasound in 12-24 months can be performed if indicated. No tissue sampling is necessary at this time. Omid Clayton MD cc: [id number] TT: 10/08/2016 16:40:55 Confirmation # [id number] Dictation # [id number] sn MTDD
[2016-10-08] MEDS: QUEtiapine 200 mg XR Tab PO SCH (21:03)
[2016-10-09] MEDS: Divalproex 500 mg DR(BID formulation) PO SCH ×2 (09:20→21:32)
[2016-10-09] MEDS ORDERED: QUEtiapine 200 mg XR Tab PO SCH (16:39)
--- NOTE | 2016-10-09 16:42 | PCM.PYCHPN ---
Psychiatric Progress Note - Psychiatric Progress Note Patient seen today, length of contact: 30min Patient Chief Complaint: "I am a florence of God" Problems Identified/Issues Discussed: Suicide/ homicide prevention, past psychiatric h/o, current psychiatric symptoms , medical problems, risk/benefits and alternatives of medications, medications compliance, coping strategies, substance abuse h/o, relapse prevention, importance of follow up with psychiatrist and therapist, discharge plan. Medical Problems: dementia thyroid nodule pt was seen by medical team Diagnostic Results: Vital Signs Temp Pulse Resp BP 10/07/16 07:58 97.6 F 62 20 130/73 10/06/16 16:26 62 145/83 10/06/16 07:56 97.1 F L 66 20 130/78 10/05/16 04:00 62 118/62 10/04/16 17:10 98.4 F 58 L 17 139/84 see labs from the medical admission Temp Pulse Resp BP Pulse Ox 97.9 F 65 20 111/74 10/08/16 08:13 10/08/16 08:13 10/08/16 08:13 10/08/16 08:13 Vital Signs Temp Pulse Resp BP 10/09/16 15:58 60 123/67 10/09/16 07:46 97.5 F L 61 20 129/72 10/08/16 16:19 62 124/76 10/08/16 08:13 97.9 F 65 20 111/74 10/07/16 07:58 97.6 F 62 20 130/73 10/06/16 16:26 62 145/83 10/06/16 07:56 97.1 F L 66 20 130/78 10/05/16 04:00 62 118/62 10/04/16 17:10 98.4 F 58 L 17 139/84 Laboratory Results - last 72 hr 10/08/16 07:00 Valproic Acid 67 DSM 5 Symptoms Update: Shortly pt is 71 yo male with reported h/o Alzheimer's dementia with behavioral disturbances, ?h/o bipolar disorder, ?multiple psychiatric admissions in the past, pt was sent from the [place] for evaluation change in mental status, being aggressive, agitated, psychotic in [place], was threatening to harm self and others. initially pt was admitted to the medical side, was stabilized, then was transferred to the psych inpatient unit last Friday. pt was seen today at the dinning area, pt said that he does not remember this press writer, hard to interview, pt feels that he is a "florence of God", was disruptive in the groups, but redirectable, pt's daughter visited pt, SW will call and ask if pt is at his baseline. 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 daughter will visit pt tomorrow, will f/u on that. pt seems to have loud voice, but speech is less pressured, pt is off 1:1, no agitation or agression. pt tolerated meds well, no side effects observed or reported. Impulse control is unpredictable and his insight and judgment are poor. Diagnostic Results: Alzheimers dementia with behavioral disturbance and psychotic symptoms ?h/o bipolar disorder Medication Change: Yes (seroquel increased) Medical Record Reviewed: Yes (reports, labs, vitals, notes) Consults ordered or reviewed: medical consult appreciated Mental Status Examination - Cognitive Function Orientation: Person, Place, Situation Memory: Impaired (chronic) Attention: Poor Concentration: Poor Association: Loose Fund of Knowledge: Poor - Mood Mood: Other ("okay") - Affect Affect: Broad, Other (labile) - Speech Speech: Loud - Formal Thought Process Formal Thought Process: Delusions, Paranoia, Loosening of associations - Suicidal Ideation Suicidal Ideation: No - Homicidal Ideation Homicidal Ideation: No Goal/Treatment Plan - Goal/Treatment Plan Need for Continued Stay: Remain at risks for inpatient hospitalization, Severe depression anxiety, Discharge may exacerbated symptoms, Severe functional impairment Progress Toward Problem(s) and Goals/Treatment Plan: milieu/structure/supportive therapy depakote 500mg bid for mood stabilization depakote level 67 10/08/16 seroquel 300mg po hs for psychosis will continue all meds SW evaluatin will monitor closely 1:1 discontinued, no behavioral issues SW will call pt's daughter to f/u if pt is on his baseline Estimated Date of D/C: 10/11/16 (will monitor closely)
--- NOTE | 2016-10-09 19:55 | PN ---
DATE: 10/09/2016 HISTORY OF PRESENT ILLNESS: This 71-year-old male was examined in his room. He was lying in bed, alert, calm but disoriented to date and place. Nursing staff reports that he is tolerating diet and medication well and has not been agitated today. PHYSICAL EXAMINATION: VITAL SIGNS: Temperature is 97.5, respirations 16, pulse 60, and blood pressure 123/67. HEAD: Normocephalic, atraumatic. EYES: No icterus. EARS: Clear. THROAT: Noninjected. NECK: Supple. HEART: Regular S1, S2. LUNGS: Clear. ABDOMEN: Soft. EXTREMITIES: No edema. SKIN: Without rash. NEUROLOGIC: Intact. PSYCHOLOGICAL: Alert but confused. VASCULAR: Legs warm to touch. IMPRESSION: A 71-year-old male with acute psychosis, chronic Alzheimer's dementia, paranoid schizophrenia and recent agitation. PLAN: To continue Aricept 10 mg p.o. at bedtime, Depakote 500 mg p.o. b.i.d., Geodon 20 mg p.o. q. 8 hours p.r.n. agitation, Seroquel 300 mg p.o. at bedtime, Sonata 5 mg p.o. at bedtime p.r.n. He is being followed by psychiatry. He will be seen by social service. The ultimate plan will be to return this patient to his alf care at the [facility] in [place] where he follows with Dr. 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 Celeste Boykin MD cc: [phone] TT: 10/09/2016 19:55:13 Confirmation # [id number] Dictation # [id number] MTDD
[2016-10-09] MEDS: QUEtiapine 300 mg XR Tab PO SCH (21:31)
[2016-10-10] MEDS: Divalproex 500 mg DR(BID formulation) PO SCH (09:33)
--- NOTE | 2016-10-10 14:00 | PN ---
DATE: 10/10/2016 This 71-year-old male was examined in his room where he was calm, but confused. There were no reports of agitation or combativeness from the nursing staff and he no longer has a 1:1 sitter. PHYSICAL EXAMINATION: VITAL SIGNS: Temperature is 97.5, respirations 20, pulse 60, and blood pressure 135/74. HEAD: Normocephalic, atraumatic. EYES: No icterus. EARS: Clear. THROAT: Not injected. NECK: Supple. HEART: S1, S2. LUNGS: Clear. ABDOMEN: Soft. EXTREMITIES: No edema. SKIN: Without rash. NEUROLOGIC: Intact. PSYCHOLOGICAL: Alert but confused to person, place and time. VASCULAR: Legs warm to touch. LABORATORY DATA: The patient was seen by Dr. Omid Clayton from interventional radiology, who reviewed the patient's thyroid ultrasound which had demonstrated subcentimeter nodules and this was in the setting of normal thyroid functioning. Dr. Clayton commented that his thyroid gland is heterogeneous and echotexture. He saw no dominant or suspicious nodules and felt that none of his nodules met the criteria for tissue sampling. He recommended a followup ultrasound in 12 to 24 months if indicated and commented no tissue sampling was indicated at this time. IMPRESSION: A 71-year-old male admitted with depression, agitation, paranoid schizophrenia, psychosis and previous hallucinations and insomnia as well as Alzheimer's dementia. PLAN: At present is to continue Aricept 10 mg p.o. at bedtime, Depakote 500 mg p.o. daily, Depakote 750 p.o. at bedtime, Seroquel 300 mg at bedtime, Sonata 5 mg p.o. at bedtime p.r.n. insomnia. He continues on a regular diet. He is being followed by Dr. Ashley Mojica from psychiatry and ultimate plan will be to return this patient to his skilled nursing care at the [facility] where he is followed by Dr. 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 His overall prognosis, though poor, is stable at present. Celeste Boykin MD cc: [id number] TT: 10/10/2016 13:59:21 Confirmation # [id number] Dictation # [id number] abigail GOLDBERG
--- NOTE | 2016-10-10 15:21 | PCM.PYCHPN ---
Psychiatric Progress Note - Psychiatric Progress Note Patient seen today, length of contact: 30min Patient Chief Complaint: "I am crazy..., my head is empty, I am lost" Problems Identified/Issues Discussed: Suicide/ homicide prevention, past psychiatric h/o, current psychiatric symptoms , medical problems, risk/benefits and alternatives of medications, medications compliance, coping strategies, substance abuse h/o, relapse prevention, importance of follow up with psychiatrist and therapist, discharge plan. Medical Problems: dementia thyroid nodule pt was seen by medical team Diagnostic Results: Vital Signs Temp Pulse Resp BP 10/07/16 07:58 97.6 F 62 20 130/73 10/06/16 16:26 62 145/83 10/06/16 07:56 97.1 F L 66 20 130/78 10/05/16 04:00 62 118/62 10/04/16 17:10 98.4 F 58 L 17 139/84 see labs from the medical admission Temp Pulse Resp BP Pulse Ox 97.9 F 65 20 111/74 10/08/16 08:13 10/08/16 08:13 10/08/16 08:13 10/08/16 08:13 Vital Signs Temp Pulse Resp BP 10/09/16 15:58 60 123/67 10/09/16 07:46 97.5 F L 61 20 129/72 10/08/16 16:19 62 124/76 10/08/16 08:13 97.9 F 65 20 111/74 10/07/16 07:58 97.6 F 62 20 130/73 10/06/16 16:26 62 145/83 10/06/16 07:56 97.1 F L 66 20 130/78 10/05/16 04:00 62 118/62 10/04/16 17:10 98.4 F 58 L 17 139/84 Laboratory Results - last 72 hr 10/08/16 07:00 Valproic Acid 67 Temp Pulse Resp BP Pulse Ox 97.5 F L 60 20 135/74 10/10/16 07:56 10/10/16 07:56 10/10/16 07:56 10/10/16 07:56 DSM 5 Symptoms Update: Shortly pt is 71 yo male with reported h/o Alzheimer's dementia with behavioral disturbances, ?h/o bipolar disorder, ?multiple psychiatric admissions in the past, pt was sent from the [place] for evaluation change in mental status, being aggressive, agitated, psychotic in NH, was threatening to harm self and others. Darrel, patient was irritable, angry, loud at the morning time required to be medicated with Geodon IM. Patient was seen today at the morning time at the TV area, patient is Mongolian- speaking this senior writer utilized nurse bartender manager for translation Mr. Thayer. Patient presented to be alert, patient knows that he is in the hospital into the psychiatric inpatient unit, patient statement did not make much sense, patient was referring to himself as "low," as crazy, patient denied thoughts of harming himself or others. This senior writer will increase the dose of mood stabilizer. patient is of 1-1, no agitation, no aggression, but patient required to have IM today at the morning time. Patient daughter supposed to visit patient on the floor, he is not sure if she came over or not, secondary social studies teacher will contact her in order to find out if patient is at his baseline pt tolerated meds well, no side effects observed or reported. Impulse control is unpredictable and his insight and judgment are poor. Diagnostic Results: Alzheimers dementia with behavioral disturbance and psychotic symptoms ?h/o bipolar disorder Medication Change: Yes (seroquel increased) Medical Record Reviewed: Yes (reports, labs, vitals, notes) Mental Status Examination - Cognitive Function Orientation: Person, Place, Situation Memory: Impaired (chronic) Attention: Poor Concentration: Poor Association: Loose Fund of Knowledge: Poor - Mood Mood: Other ("okay") - Affect Affect: Broad, Other (labile) - Speech Speech: Loud - Formal Thought Process Formal Thought Process: Delusions, Paranoia, Loosening of associations - Suicidal Ideation Suicidal Ideation: No - Homicidal Ideation Homicidal Ideation: No Goal/Treatment Plan - Goal/Treatment Plan Need for Continued Stay: Remain at risks for inpatient hospitalization, Severe depression anxiety, Discharge may exacerbated symptoms, Severe functional impairment Progress Toward Problem(s) and Goals/Treatment Plan: milieu/structure/supportive therapy depakote 500mg am and 750mg hs for mood stabilization depakote level 67 10/08/16 seroquel 300mg po hs for psychosis will continue all meds SW evaluatin will monitor closely 1:1 discontinued, no behavioral issues SW will call pt's daughter to f/u if pt is on his baseline Estimated Date of D/C: 10/14/16 (will monitor closely)
[2016-10-10] MEDS: QUEtiapine 300 mg XR Tab PO SCH (21:07)
[2016-10-10] MEDS: Divalproex 250 mg ER (ONCE DAILY formulation) PO SCH (21:07)
[2016-10-11] MEDS: Divalproex 250 mg ER (ONCE DAILY formulation) PO SCH ×2 (06:27→22:51)
[2016-10-11] MEDS: QUEtiapine 300 mg XR Tab PO SCH ×2 (06:32→22:51)
[2016-10-11] MEDS ORDERED: Divalproex 500 mg DR(BID formulation) PO SCH (08:00)
[2016-10-11] MEDS: Divalproex 500 mg ER (ONCE DAILY formulation) PO SCH (09:02)
--- NOTE | 2016-10-11 11:08 | PN ---
DATE: 10/11/2016 This 71-year-old male was examined in room 519, bed 2. He was alert. When I questioned him where wa s he located, he said in a assisted. The patient is being followed daily by Dr. Ashley [facility], who comments that the patient remains confused, easily agitated and delusional. She contin ues to medicate him and maintain his hospitalization due to multiple medical problems including demen tia, psychosis, depression, agitation syndrome and paranoid schizophrenia. The one-on-one has been d iscontinued under her guidance. PHYSICAL EXAMINATION: VITAL SIGNS: Temperature is 98.4, respirations 20, pulse 62, and blood pressure 134/72. HEAD: Normocephalic, atraumatic. EYES: No icterus. EARS: Clear. THROAT: Noninjected. NECK: Supple. HEART: S1, S2. LUNGS: Clear. ABDOMEN: Soft. EXTREMITIES: No edema. SKIN: Without rash. NEUROLOGICAL: Intact. PSYCHOLOGICAL: Alert, disoriented to place and time. VASCULAR: Legs warm to touch. LABORATORIES: Valproic acid 67, normal is 50-100. IMPRESSION: A 71-year-old male with agitation syndrome, Alzheimer dementia, paranoid schizophrenia, psychosis, delusional thought process. PLAN: At present is to continue Aricept 10 mg at bedtime, Depakote 500 mg a.m., Depakote 750 mg p.m. , Seroquel 300 mg at bedtime and Sonata 5 mg p.o. at bedtime p.r.n. insomnia. He continues on a regu lar diet. He continues to require close psychiatric followup. I have discussed his case with Dr. Fransico Gtz from [facility] regarding his subcentimeter thyroid nodules which require no intervention at this time and the patient's overall prognosis, though poor, is stable at present. Celeste Boykin MD cc: [id number] TT: 10/11/2016 11:08:00 Confirmation # [id number] Dictation # [id number] en
--- NOTE | 2016-10-11 17:05 | PCM.PYCHPN ---
Psychiatric Progress Note - Psychiatric Progress Note Patient seen today, length of contact: 30min Patient Chief Complaint: "I I feel all right' Problems Identified/Issues Discussed: Suicide/ homicide prevention, past psychiatric h/o, current psychiatric symptoms , medical problems, risk/benefits and alternatives of medications, medications compliance, coping strategies, substance abuse h/o, relapse prevention, importance of follow up with psychiatrist and therapist, discharge plan. Medical Problems: dementia thyroid nodule pt was seen by medical team Diagnostic Results: Vital Signs Temp Pulse Resp BP 10/07/16 07:58 97.6 F 62 20 130/73 10/06/16 16:26 62 145/83 10/06/16 07:56 97.1 F L 66 20 130/78 10/05/16 04:00 62 118/62 10/04/16 17:10 98.4 F 58 L 17 139/84 see labs from the medical admission Temp Pulse Resp BP Pulse Ox 97.9 F 65 20 111/74 10/08/16 08:13 10/08/16 08:13 10/08/16 08:13 10/08/16 08:13 Vital Signs Temp Pulse Resp BP 10/09/16 15:58 60 123/67 10/09/16 07:46 97.5 F L 61 20 129/72 10/08/16 16:19 62 124/76 10/08/16 08:13 97.9 F 65 20 111/74 10/07/16 07:58 97.6 F 62 20 130/73 10/06/16 16:26 62 145/83 10/06/16 07:56 97.1 F L 66 20 130/78 10/05/16 04:00 62 118/62 10/04/16 17:10 98.4 F 58 L 17 139/84 Laboratory Results - last 72 hr 10/08/16 07:00 Valproic Acid 67 Temp Pulse Resp BP Pulse Ox 97.5 F L 60 20 135/74 10/10/16 07:56 10/10/16 07:56 10/10/16 07:56 10/10/16 07:56 Temp Pulse Resp BP Pulse Ox 98.4 F 68 20 117/77 10/11/16 07:39 10/11/16 16:21 10/11/16 07:39 10/11/16 16:21 DSM 5 Symptoms Update: Shortly pt is 71 yo male with reported h/o Alzheimer's dementia with behavioral disturbances, ?h/o bipolar disorder, ?multiple psychiatric admissions in the past, pt was sent from the [place] for evaluation change in mental status, being aggressive, agitated, psychotic in NH, was threatening to harm self and others. pt presented much calmer, no agitation no aggression, patient compliant with medications, at times forgetful, socially appropriate. Yesterday patient was loud, agitated, Depakote was increased. We will need to follow up Depakote level on Friday, October 14, order placed. Patient tolerates medications well, no side effects observed or reported, aims 0 , no EPS. patient reported that he feels "okay" denied thoughts of harming himself or others, much, calmer to compared with yesterday. Impulse control is better and his insight and judgment are poor. Diagnostic Results: Alzheimers dementia with behavioral disturbance and psychotic symptoms ?h/o bipolar disorder Medication Change: Yes (Depakote was increased yesterday) Medical Record Reviewed: Yes (reports, labs, vitals, notes) Consults ordered or reviewed: medical consult appreciated Mental Status Examination - Cognitive Function Orientation: Person, Place, Situation Memory: Impaired (chronic) Attention: Poor (somewhat better) Concentration: Poor (omewhat better) Association: Loose (chronic) Fund of Knowledge: Poor - Mood Mood: Other ("okay") - Affect Affect: Constricted (irritable) - Speech Speech: Loud - Formal Thought Process Formal Thought Process: Delusions, Paranoia, Loosening of associations - Suicidal Ideation Suicidal Ideation: No - Homicidal Ideation Homicidal Ideation: No Goal/Treatment Plan - Goal/Treatment Plan Need for Continued Stay: Remain at risks for inpatient hospitalization, Severe depression anxiety, Discharge may exacerbated symptoms, Severe functional impairment Progress Toward Problem(s) and Goals/Treatment Plan: milieu/structure/supportive therapy depakote 500mg am and 750mg hs for mood stabilization depakote level 67 10/08/16 Depakote level October 14 to be followed up seroquel 300mg po hs for psychosis will continue all meds SW evaluatin will monitor closely 1:1 discontinued, no behavioral issues SW will call pt's daughter to f/u if pt is on his baseline possible discharge on Friday Estimated Date of D/C: 10/14/16 (will monitor closely)
--- NOTE | 2016-10-12 09:24 | PCM.PYCHPN ---
Psychiatric Progress Note - Psychiatric Progress Note Patient seen today, length of contact: 25 min Problems Identified/Issues Discussed: I reviewed recent notes and met with patient at bedside. Cambodian translation was facilitated with the help of Parul. Patient remains disoriented; he is still completely unaware of the location, month or year this morning. Patient is generally reluctant to participate in an interview. He indicates that he doesn't know how he is feeling. Also cannot provide information about the presence of hallucinations however he does deny having suicidal thoughts and thoughts to harm others. His behavior is more controlled than last weekend and he has been cooperative with medications. Nonetheless impulse control is still a little unpredictable. He has been withdrawn and observed mumbling to himself. Insight and judgement remain poor. Diagnostic Results: Alzheimers dementia with behavioral disturbance and psychotic symptoms Medication Change: No ( ) Medical Record Reviewed: Yes (reports, labs, vitals, notes) Mental Status Examination - Cognitive Function Orientation: Person, Place, Situation Memory: Impaired (chronic) Attention: Poor (somewhat better) Concentration: Poor (omewhat better) Association: Loose (chronic) Fund of Knowledge: Poor - Mood Mood: Other ( Will not respond, states "I don't know") - Affect Affect: Constricted (irritable) - Speech Speech: Loud - Formal Thought Process Formal Thought Process: Delusions, Paranoia, Loosening of associations - Suicidal Ideation Suicidal Ideation: No - Homicidal Ideation Homicidal Ideation: No Goal/Treatment Plan - Goal/Treatment Plan Need for Continued Stay: Remain at risks for inpatient hospitalization, Severe depression anxiety, Discharge may exacerbated symptoms, Severe functional impairment Progress Toward Problem(s) and Goals/Treatment Plan: * c/w current tx and plan * To f/u VPA level on 10/14/16 * No new weekend labs * Vitals reviewed and noted below: Selected Entries 10/11/16 10/11/16 07:39 16:21 Temperature 98.4 F Pulse Rate 62 68 Respiratory 20 Rate Blood Pressure 134/72 117/77 Estimated Date of D/C: 10/14/16 (will monitor closely)
[2016-10-12] MEDS: Divalproex 500 mg ER (ONCE DAILY formulation) PO SCH (09:51)
--- NOTE | 2016-10-12 18:22 | PN ---
DATE: 10/12/2016 This 71-year-old male was examined at his bedside. He was lying in bed, alert and when I question where he was, once again he said in a nursing home. He was seen earlier today by psychiatry who confirms the patient remains confused, easily agitated and delusional. He remains hospitalized for these issues, as well as chronic depression, paranoid schizophrenia and insomnia. PHYSICAL EXAMINATION: VITAL SIGNS: Today, his temperature is 98.4, respirations 20, pulse 68 and blood pressure 117/77. HEAD: Normocephalic, atraumatic. EYES: No icterus. EARS: Clear. THROAT: Noninjected. NECK: Supple. HEART: S1, S2. LUNGS: Clear. ABDOMEN: Soft. EXTREMITIES: No clubbing, no cyanosis, no edema. SKIN: Without rash. NEUROLOGIC: Unchanged. PSYCHOLOGICAL: Confused. VASCULAR: Legs warm to touch. LABORATORY DATA: Valproic acid level 67. IMPRESSION: A 71-year-old male with chronic depression, anxiety, psychosis, paranoid schizophrenia and delusional thought process, as well as chronic insomnia. The patient was recently evaluated for subcentimeter with bilateral thyroid nodules that on laboratory testing showed euthyroid state and do not require any further intervention at this time. PLAN: At present is to repeat basic metabolic panel and CBC in a.m. He will continue on Depakote 500 mg p.o. a.m. and 750 mg p.o. at bedtime, Aricept 10 mg at bedtime, Seroquel 300 mg at bedtime, and Sonata 5 mg p.o. at bedtime p.r.n. insomnia, as well as Geodon 20 mg p.o. q. 8 p.r.n. agitation. The patient is also scheduled for a Depakote level on 10/14/2016, and ultimate plan for discharge will be decided by Dr. Ramirez his psychiatrist. Celeste Boykin MD cc: [id number] TT: 10/12/2016 18:22:19 Confirmation # [id number] Dictation # [id number] tamera GOLDBERG
[2016-10-12] MEDS: Divalproex 250 mg ER (ONCE DAILY formulation) PO SCH (22:15)
[2016-10-12] MEDS: QUEtiapine 300 mg XR Tab PO SCH (22:17)
[2016-10-13 07:56] LABS: MEAN CORPUSCULAR HEMOGLOBIN 30.9 pg (25.0-35.0); MEAN CORPUSCULAR HGB CONC 32.5 g/dl (31.0-37.0); MEAN PLATELET VOLUME 11.5 fl (7.0-11.0); RED CELL DISTRIBUTION WIDTH 14.7 % (11.5-14.5)
[2016-10-13 08:13] LABS: BLOOD UREA NITROGEN 18 mg/dL (7-21); CALCIUM 9.7 mg/dL (8.4-10.5); CARBON DIOXIDE 31 mmol/L (21-33); CHLORIDE 103 mmol/L (95-110); GFR AFRICAN-AMERICAN > 60; GLUCOSE,RANDOM 82 mg/dL (70-110); POTASSIUM 4.4 mmol/L (3.6-5.0); SODIUM 143 mmol/L (132-148)
--- NOTE | 2016-10-13 10:12 | PCM.PYCHPN ---
Psychiatric Progress Note - Psychiatric Progress Note Patient seen today, length of contact: 25 min Problems Identified/Issues Discussed: I reviewed recent notes and met with patient at bedside. Pakistani translation was facilitated with the help of Parul. Patient remains disoriented; he is still completely unaware of the location, month or year this morning. Patient is generally reluctant to participate in an interview but looks less irritable today. Some of his responses do not make sense. Again he indicates that he doesn 't know how he is feeling. Also cannot provide information about the presence of hallucinations however he does deny having suicidal thoughts and thoughts to harm others. His behavior is more controlled than last weekend and he has been compliant with medications. Nonetheless impulse control is still a little unpredictable. He has been withdrawn and observed mumbling incoherently to himself, sometimes loudly. Insight and judgement remain poor. Diagnostic Results: Alzheimers dementia with behavioral disturbance and psychotic symptoms Medication Change: No ( ) Medical Record Reviewed: Yes (reports, labs, vitals, notes) Mental Status Examination - Cognitive Function Orientation: Person, Place, Situation Memory: Impaired (chronic) Attention: Poor (somewhat better) Concentration: Poor (omewhat better) Association: Loose (chronic) Fund of Knowledge: Poor - Mood Mood: Other ( Will not respond, states "I don't know") - Affect Affect: Constricted (irritable) - Speech Speech: Loud - Formal Thought Process Formal Thought Process: Delusions, Paranoia, Loosening of associations - Suicidal Ideation Suicidal Ideation: No - Homicidal Ideation Homicidal Ideation: No Goal/Treatment Plan - Goal/Treatment Plan Need for Continued Stay: Remain at risks for inpatient hospitalization, Severe depression anxiety, Discharge may exacerbated symptoms, Severe functional impairment Progress Toward Problem(s) and Goals/Treatment Plan: * c/w current tx and plan * Appreciate f/u by Dr. Boykin on 10/12/16~repeat metabolic panel and CBC * To f/u VPA level on 10/14/16 * Vitals reviewed and noted below: Selected Entries 10/11/16 10/11/16 10/12/16 07:39 16:21 17:07 Temperature 98.4 F Pulse Rate 62 68 69 Respiratory 20 Rate Blood Pressure 134/72 117/77 109/56 L 10/12/16 17:08 Temperature Pulse Rate 69 Respiratory Rate Blood Pressure 109/56 L * Weekend labs noted below: Laboratory Results - last 24 hr 10/13/16 10/13/16 07:00 07:00 WBC 6.0 RBC 4.21 Hgb 13.0 L Hct 40.0 L MCV 95.0 MCH 30.9 MCHC 32.5 RDW 14.7 H Plt Count 244 MPV 11.5 H Sodium 143 Potassium 4.4 Chloride 103 Carbon Dioxide 31 Anion Gap 13 BUN 18 Creatinine 0.9 Est GFR ( Amer) > 60 Est GFR (Non-Af Amer) > 60 Random Glucose 82 Calcium 9.7 Estimated Date of D/C: 10/14/16 (will monitor closely)
[2016-10-13] MEDS: Divalproex 500 mg ER (ONCE DAILY formulation) PO SCH (11:02)
--- NOTE | 2016-10-13 11:46 | PN ---
DATE: 10/13/2016 This 71-year-old male was examined in the psychiatric berry where he remained calm, but confused and i s being hospitalized for multiple medical problems including depression, anxiety, insomnia, paranoid schizophrenia, psychosis and delusional syndrome. On questioning the patient, he denies any headache , chest pain, shortness of breath, or fever or chills. PHYSICAL EXAMINATION: VITAL SIGNS: Temperature 98.4, respirations 20, pulse 69 and blood pressure 109/56. HEAD: Normocephalic, atraumatic. EYES: Show no icterus. EARS: Clear. THROAT: Noninjected. NECK: Supple. HEART: Regular S1, S2. LUNGS: Clear. ABDOMEN: Soft. EXTREMITIES: No clubbing, no cyanosis, no edema. SKIN: Without rash. NEUROLOGICAL: Intact. PSYCHOLOGICAL: Confused. VASCULAR: Legs warm to touch. LABORATORIES: White count 6000, hemoglobin 13, hematocrit 40, platelets 244,000. Sodium 143, K 4.4, chloride 103, bicarb 31, BUN 18, creatinine 0.9, random blood sugar is 82. IMPRESSION: A 71-year-old male with multiple medical problems including chronic dementia, paranoid s chizophrenia, psychosis, agitation syndrome, insomnia and delusional state. PLAN: To continue Aricept 10 mg p.o. at bedtime, Depakote 500 mg a.m. and 750 mg p.o. at bedtime, Ge odon 20 mg p.o. q. 8 hours p.r.n. agitation, Seroquel 300 mg p.o. at bedtime and Sonata 5 mg p.o. at bedtime p.r.n. insomnia. He continues on a regular diet. He is being monitored cautiously regarding his multiple psychiatric problems and his discharge will be decided by Dr. Ashley Mojica, psychia try. Celeste Boykin MD cc: [id number] TT: 10/13/2016 11:45:35 Confirmation # [id number] Dictation # [id number] en
[2016-10-13 16:58] VITALS: BP 131/69; PULSE 64; RESP 18; TEMP 96.4
[2016-10-13] MEDS: Divalproex 250 mg ER (ONCE DAILY formulation) PO SCH (22:18)
[2016-10-13] MEDS: QUEtiapine 300 mg XR Tab PO SCH (22:20)
[2016-10-14] MEDS: Divalproex 500 mg ER (ONCE DAILY formulation) PO SCH (08:50)
--- NOTE | 2016-10-14 12:27 | PN ---
DATE: 10/14/2016 This 71-year-old male was examined in the psychiatric berry and his case was reviewed with the nursing staff. The patient remains calmer. He is chronically confused in the setting of Alzheimer dementia and has multiple psychiatric diagnoses including anxiety, depression, paranoid schizophrenia and del usional psychosis and Alzheimer dementia. The patient is being readied for return to his prison e nvironment at the [facility]. PHYSICAL EXAMINATION: VITAL SIGNS: Temperature was 96.4, respirations 18, pulse 64, and blood pressure 131/69. HEAD: Normocephalic, atraumatic. EYES: No icterus. EARS: Clear. THROAT: Noninjected. NECK: Supple. HEART: S1, S2. LUNGS: Clear. ABDOMEN: Soft. EXTREMITIES: No edema. SKIN: Without rash. NEUROLOGICAL: Unchanged. PSYCHOLOGICAL: Chronically confused. VASCULAR: Legs warm to touch. LABORATORIES: Showed white count 6000, hemoglobin 13, hematocrit 40, platelets 244,000. Sodium 143, K 4.4, chloride 103, bicarb 31, BUN 18, creatinine 0.9 and random blood sugar was 82. Valproic acid level was 97, therapeutic is 50-100. IMPRESSION: A 71-year-old male with chronic Alzheimer dementia, paranoid schizophrenia, psychosis, d elusional hallucination episodes, anxiety, depression. PLAN: To return this patient to his [facility] environment and his discharge medication will inclu de Aricept 10 mg p.o. at bedtime, Depakote 500 mg a.m., Depakote 750 mg p.o. p.m., Seroquel 300 mg p. o. at bedtime, regular diet and patient will need outpatient psychiatric followup as well as guidance from his proof sorter, Dr. Holley. Prognosis remains stable at present. Celeste Boykin MD cc: [id number] TT: 10/14/2016 12:26:41 Confirmation # [id number] Dictation # [id number] en
== END 2016-10-14 17:16 | DRG 57 ==
LOC: PSYC 16:52
PROVIDERS: ADMIT Psychiatry & Neurology Psychiatry; ATTEND Psychiatry & Neurology Psychiatry
PROC: GZ3ZZZZ Medication Management (ICD-10-PCS; principal; 2016-10-04)
DX: G30.9 Alzheimer's disease, unspecified (principal); F02.81 Dementia in other diseases classified elsewhere, unspecified severity, with behavioral disturbance; F20.0 Paranoid schizophrenia; R44.3 Hallucinations, unspecified; F51.04 Psychophysiologic insomnia; E04.1 Nontoxic single thyroid nodule

== ENCOUNTER 2016-12-12 11:20 | Inpatient (IN) | payer MEDICARE, MEDICAID ==
[2016-12-12 11:24] VITALS: BMI 32.9
[2016-12-12 11:43] VITALS: TEMP 97.9
--- NOTE | 2016-12-12 11:56 | ED PDOC ---
Arrival/HPI - General Chief Complaint: Psychiatric Evaluation Time Seen by Provider: 12/12/16 11:24 Historian: Patient - History of Present Illness Narrative History of Present Illness (Text): 12/12/16 11:52 A 71 year old male with a past medical history of dementia, presents to the emergency department sent in by his fdc for aggressive behavior. As per fdc, the patient was throwing chairs saying that he wanted to smoke. The patient is currently in no distress, asymptomatic, calm, and cooperative. The patient was currently an inpatient to psychiatric services. He denies fevers, chills, chest pain, shortness of breath, cough, abdominal pain, nausea, vomiting, diarrhea, headache, dizziness, or any other complaints. Time/Duration: Prior to Arrival Symptom Onset: Sudden Symptom Course: Unchanged Activities at Onset: Rest, Light Context: Other (Penitentiary) Past Medical History - Provider Review Nursing Documentation Reviewed: Yes - Infectious Disease Hx of Infectious Diseases: None - Cardiac Hx Cardiac Disorders: No Hx Hypertension: No - Pulmonary Hx Respiratory Disorders: No Hx Tuberculosis: No - Neurological Hx Neurological Disorder: Yes Hx Dementia: Yes Other/Comment: hydrocephalus, vp patient shunt - HEENT Hx HEENT Disorder: No - Renal Hx Renal Disorder: No - Endocrine/Metabolic Hx Endocrine Disorders: No - Hematological/Oncological Hx Blood Disorders: No Hx Cancer: No - Integumentary Hx Dermatological Disorder: No - Musculoskeletal/Rheumatological Hx Musculoskeletal Disorders: No Hx Falls: Yes - Gastrointestinal Hx Gastrointestinal Disorders: No - Genitourinary/Gynecological Hx Genitourinary Disorders: No Hx Sexually Transmitted Diseases: No - Psychiatric Hx Psychophysiologic Disorder: No (SCHIZOAFFECTIVE D/O) Hx Bipolar Disorder: Yes Hx Schizophrenia: Yes Hx Substance Use: (UNKNOWN) Other/Comment: Schizoaffective disorder - Anesthesia Hx Anesthesia: Yes Hx Anesthesia Reactions: No Family/Social History - Physician Review Nursing Documentation Reviewed: Yes Family/Social History: No Known Family HX Smoking Status: Former Smoker Hx Alcohol Use: (UNKNOWN) Hx Substance Use: (UNKNOWN) Allergies/Home Meds Allergies/Adverse Reactions: Allergies No Known Allergies Allergy (Verified 12/12/16 15:09) Home Medications: Home Meds Medication Instructions Recorded Confirmed Acetaminophen [Non-Aspirin Pain 650 mg PO PRN PRN 10/02/16 12/12/16 Relief] Bisacodyl [Fast Relief Laxative] 10 mg RC PRN PRN 12/12/16 12/12/16 Zaleplon [Sonata] 1 tab PO HS 12/12/16 12/12/16 Ziprasidone HCl [Geodon] 20 mg PO Q8H PRN 12/12/16 12/12/16 Review of Systems - Physician Review All systems were reviewed & negative as marked: Yes - Review of Systems Constitutional: absent: Fevers, Night Sweats Respiratory: absent: SOB, Cough Cardiovascular: absent: Chest Pain Gastrointestinal: absent: Abdominal Pain, Diarrhea, Nausea, Vomiting Neurological: absent: Headache, Dizziness Psychiatric: Other (Agressive Behavior in Penitentiary) Physical Exam Vital Signs Reviewed: Yes Vital Signs Temp Pulse Resp BP Pulse Ox 12/12/16 14:51 62 16 142/77 98 12/12/16 11:40 97.9 F 66 18 137/75 96 Temperature: Afebrile Blood Pressure: Normal Pulse: Regular Respiratory Rate: Normal Appearance: Positive for: Well-Appearing, Non-Toxic, Comfortable Pain Distress: None Mental Status: Positive for: Alert and Oriented X 3 - Systems Exam Head: Present: Atraumatic, Normocephalic Pupils: Present: PERRL Extroacular Muscles: Present: EOMI Conjunctiva: Present: Normal Mouth: Present: Moist Mucous Membranes Neck: Present: Normal Range of Motion Respiratory/Chest: Present: Clear to Auscultation, Good Air Exchange. No: Respiratory Distress, Accessory Muscle Use Cardiovascular: Present: Regular Rate and Rhythm, Normal S1, S2. No: Murmurs Abdomen: Present: Normal Bowel Sounds. No: Tenderness, Distention, Peritoneal Signs Back: Present: Normal Inspection Upper Extremity: Present: Normal Inspection. No: Cyanosis, Edema Lower Extremity: Present: Normal Inspection. No: Edema Neurological: Present: GCS=15, CN II-XII Intact, Speech Normal Skin: Present: Warm, Dry, Normal Color. No: Rashes Psychiatric: Present: Alert, Oriented x 3, Normal Insight, Normal Concentration Medical Decision Making ED Course and Treatment: 12/12/16 11:58 Impression: A 71 year old male sent in by his fdc for aggressive behavior. Plan: -- EKG -- CXR -- Labs -- Urinalysis -- Tylenol -- Reassess and disposition Progress Notes: EKG: Ordered, reviewed, and independently interpreted the EKG. Rate : 64 BPM Rhythm : NSR Interpretation : No ST/T wave changes 12/12/16 12:[address] h/o of vp patient shunt 12/12/16 12:32 CHEST X-RAY Dictator : Mayur Mckenzie MD Report Date : 12/12/2016 12:26:17 LUNGS: No active pulmonary disease. 12/12/16 13:00 12/12/16 14:15: PES worker request medical admission. Dr. Ramirez is in agreement. Dr. Boykin accepts patient. pt cooperative in er. CT HEAD WITHOUT CONTRAST Dictator : Mayur Mckenzie MD Report Date : 12/12/2016 14:11:10 IMPRESSION: No acute findings 12/12/16 15:49 - Lab Interpretations Lab Results: 12/12/16 12:04 12/12/16 12:04 Lab Results 12/12/16 12:04: Alcohol, Quantitative < 10 12/12/16 12:04: Salicylates < 1 L, Acetaminophen < 10.0 L 12/12/16 12:04: Sodium 145, Potassium 3.9, Chloride 104, Carbon Dioxide 30, Anion Gap 15, BUN 17, Creatinine 0.9, Est GFR ( Amer) > 60, Est GFR (Non- Af Amer) > 60, Random Glucose 105, Calcium 9.4, Total Bilirubin 0.3, AST 17, ALT 31, Alkaline Phosphatase 71, Total Protein 7.4, Albumin 4.2, Globulin 3.2, Albumin/Globulin Ratio 1.3 12/12/16 12:04: WBC 6.3, RBC 4.08, Hgb 12.8 L, Hct 38.6 L, MCV 94.6, MCH 31.4, MCHC 33.2, RDW 14.8 H, Plt Count 257, MPV 11.2 H, Gran % 67.0, Lymph % (Auto) 19.9 L, Butts % (Auto) 11.5 H, Eos % (Auto) 1.4 L, Baso % (Auto) 0.2, Gran # 4.21 , Lymph # 1.3, Butts # 0.7 H, Eos # 0.1, Baso # 0.01 I have reviewed the lab results: Yes - RAD Interpretation Radiology Orders: 12/12/16 11:40 CHEST PORTABLE [RAD] Stat 12/12/16 12:59 HEAD W/O CONTRAST [CT] Stat - EKG Interpretation Interpreted by ED Physician: Yes Type: 12 lead EKG - Scribe Statement The provider has reviewed the documentation as recorded by the Elenaibe Yahaira Christopher Provider Scribe Attestation: All medical record entries made by the Scribe were at my direction and personally dictated by me. I have reviewed the chart and agree that the record accurately reflects my personal performance of the history, physical exam, medical decision making, and the department course for this patient. I have also personally directed, reviewed, and agree with the discharge instructions and disposition Disposition/Present on Arrival - Present on Arrival Any Indicators Present on Arrival: No History of DVT/PE: No History of Uncontrolled Diabetes: No Urinary Catheter: No History of Decub. Ulcer: No History Surgical Site Infection Following: None - Disposition Have Diagnosis and Disposition been Completed?: Yes Diagnosis: Altered mental status Disposition: HOSPITALIZED Disposition Time: 15:49 Patient Problems: Current Active Problems Problem Status Onset Altered mental status Acute Condition: STABLE
[2016-12-12 12:07] LABS: BASO # 0.01 K/mm3 (0.0-2.0); BASO % 0.2 % (0.0-3.0); EOS # 0.1 (0.0-0.7); EOS % 1.4 % (1.5-5.0); GRAN # 4.21 (1.4-6.5); HEMATOCRIT 38.6 % (42.0-52.0); LYMPH # 1.3 (1.2-3.4); LYMPH % 19.9 % (22.0-35.0); MEAN CELL VOLUME 94.6 fl (80.0-105.0); MEAN CORPUSCULAR HEMOGLOBIN 31.4 pg (25.0-35.0); MEAN CORPUSCULAR HGB CONC 33.2 g/dl (31.0-37.0); MEAN PLATELET VOLUME 11.2 fl (7.0-11.0); MONO # 0.7 (0.1-0.6); MONO % 11.5 % (1.0-6.0); RED CELL DISTRIBUTION WIDTH 14.8 % (11.5-14.5); WHITE BLOOD COUNT 6.3 10^3/ul (4.5-11.0)
[2016-12-12 12:19] LABS: ALB/GLOB RATIO 1.3 (1.1-1.8); ALKALINE PHOSPHATASE 71 U/L (38-133); ALT/SGPT 31 U/L (7-56); AST/SGOT 17 U/L (15-59); BILIRUBIN,TOTAL 0.3 mg/dL (0.2-1.3); BLOOD UREA NITROGEN 17 mg/dL (7-21); CALCIUM 9.4 mg/dL (8.4-10.5); CARBON DIOXIDE 30 mmol/L (21-33); CHLORIDE 104 mmol/L (98-107); GFR AFRICAN-AMERICAN > 60; GLUCOSE,RANDOM 105 mg/dL (70-110); POTASSIUM 3.9 mmol/L (3.6-5.0); SODIUM 145 mmol/L (132-148); TOTAL PROTEIN 7.4 g/dL (5.8-8.3)
--- NOTE | 2016-12-12 12:27 | RAD ---
HISTORY: pysch COMPARISON: No prior. FINDINGS: LUNGS: No active pulmonary disease. PLEURA: No significant pleural effusion identified, no pneumothorax apparent. CARDIOVASCULAR: Normal. OSSEOUS STRUCTURES: No significant abnormalities. VISUALIZED UPPER ABDOMEN: Normal. OTHER FINDINGS: None. IMPRESSION: No active disease.
--- NOTE | 2016-12-12 14:13 | CT ---
PROCEDURE: CT HEAD WITHOUT CONTRAST. 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 Radiation dose: Total exam DLP = 629 mGy-cm. This CT exam was performed using one or more of the following dose reduction techniques: Automated exposure control, adjustment of the mA and/or kV according to patient size, and/or use of iterative reconstruction technique. FINDINGS: HEMORRHAGE: No intracranial hemorrhage. BRAIN: No mass effect or edema. There is some encephalomalacia along the pathway of the right parietal ventricular shunt. This is unchanged. No acute findings VENTRICLES: There is a ventricular shunt catheter the crosses the lateral ventricles and terminates in the region of the left frontal horn from a right parietal approach. There is no change in ventricular size. No evidence of hydrocephalus CALVARIUM: Unremarkable. PARANASAL SINUSES: Unremarkable as visualized. No significant inflammatory changes. MASTOID AIR CELLS: Unremarkable as visualized. No inflammatory changes. OTHER FINDINGS: None. IMPRESSION: No acute findings
[2016-12-12 14:52] VITALS: O2SAT 98
[2016-12-12 15:55] VITALS: BP 133/64; PULSE 55
[2016-12-12 17:08] VITALS: RESP 16
[2016-12-12] MEDS ORDERED: Pneumococcal 23-Valent Vaccine IM ONE (17:08)
[2016-12-12 17:23] LABS: IRON 51 ug/dL (45-180)
--- NOTE | 2016-12-12 19:55 | CARD ---
APPROVED REPORT EKG Measurement Heart [id number] <Conclusion> Normal sinus rhythm Normal ECG
[2016-12-12] MEDS: Divalproex 250 mg ER (ONCE DAILY formulation) PO SCH (21:40)
[2016-12-12] MEDS: QUEtiapine 300 mg XR Tab PO SCH (21:50)
[2016-12-12 22:39] LABS: FOLATE 9.1 ng/mL
--- NOTE | 2016-12-13 06:53 | HP ---
HISTORY OF PRESENT ILLNESS: This 71-year-old male was admitted with altered mental status. He has a past medical history of dementia, psychosis, depression and schizophrenia. He is a long-term prison resident at the [facility]. Earlier today, he presented for evaluation to the [facility] ER because he had aggressive behavior at the local prison. Apparently, he was throwing furniture at the prison and was upset because he wanted to smoke. He has a past medical history of being hospitalized in the psychiatric unit at the [facility] in 09/2016 for depression under the direction of Dr. Ashley Mojica. The patient was noted at that time to be delusional, aggressive and had required one-to-one sitter on the medical floor prior to his transfer to Psychiatry. In the psychiatric unit, he was stabilized with medication including Depakote, Geodon, and Seroquel and was returned to his fci care at the [facility]. Now, he is readmitted with aggressive behavior. REVIEW OF SYSTEMS: On review of systems; HEAD: On head review, he has a ventriculoperitoneal shunt. He did a CAT scan of the head today shows no acute changes. He has a history of dementia. EYES: On eye review, no change in visual acuity. EARS: On ear review, no hearing loss. THROAT: On throat review, no swallowing difficulty. NECK: On neck review, no stiffness. CARDIAC: On cardiac review, no chest pain or shortness of breath. PULMONARY: No cough. No hemoptysis. GI: No hematemesis, no melena. : No dysuria. Skin without rash. NEUROLOGICAL: No knowledge of stroke. VASCULAR: No reports of claudication. PSYCHOLOGICAL: As per HPI. ALLERGIES: HE HAS NO KNOWN ALLERGIES TO MEDICATIONS. MEDICATIONS: Outpatient medications included Seroquel, Depakote, Geodon, and Sonata p.r.n. sleep. SOCIAL HISTORY: He is a former smoker and it is unknown about his history with alcohol and IV drugs. FAMILY HISTORY: Noncontributory. PHYSICAL EXAMINATION: VITAL SIGNS: At present shows temperature 97.9, respirations 16, pulse 55, and blood pressure 133/64 with a pulse ox of 98% on room air. GENERAL: The patient was alert and responsive to questioning. HEENT: Head is normocephalic and atraumatic. Eyes, no icterus. NECK: Supple. HEART: Regular, S1, S2. No pathological rubs, murmurs, or gallops. LUNGS: Clear to auscultation. ABDOMEN: Soft and nontender. No palpable organomegaly. No rebound. No guarding. No tenderness. EXTREMITIES: No clubbing, no cyanosis, no edema. SKIN: Without rash. NEUROLOGICAL: Grossly intact. PSYCHOLOGICAL: Alert, but confused. VASCULAR: Legs are warm to touch. LABORATORY DATA: White count 6300, hemoglobin 12.8, hematocrit 38.6, MCV 94.6 and platelets 257,000. Sodium 145, potassium 3.9, chloride 104, bicarbonate 30, BUN 17 and creatinine 0.9. Random blood sugar 105. All liver function testing was normal including bilirubin 0.3, AST 17, ALT 31 and alkaline phosphatase 71. Alcohol level is less than 10. Chest x-ray shows no active disease. EKG shows normal sinus rhythm. Head CT shows no acute changes. IMPRESSION: This is a 71-year-old male with history of depression, psychosis now with altered mental status at the local prison with aggressive behavior. PLAN: The plan is to admit this patient. He will have a psychiatric evaluation with Dr. Ashley Mojica, who was taking care of the patient on previous hospital stays. He has been order to have Sonata 5 mg p.o. at bedtime p.r.n. sleep, Seroquel 300 mg p.o. at bedtime, Geodon 20 mg p.o. or IM p.r.n. agitation, Depakote 500 mg p.o. daily, Depakote 750 mg p.o. at bedtime and Ativan 0.5 mg p.o. t.i.d. p.r.n. agitation. He is ordered to have vitamin B12, folic acid, ferritin, iron and TIBC levels as well as Depakote level. He is ordered to have a heart healthy diet, stool for occult blood for completeness sake . Disposition will be decided based on his clinical progress and psychiatric evaluation. All of this was then discussed in detail with the patient and nurse Miguel Diaz, registered nurse. Approximately 50 minutes was spent in the discussion and management and care of this patient today. Celeste Boykin MD [facility] # [id number] [facility]ALTH SYSTEMMeeta
--- NOTE | 2016-12-13 06:55 | CP.PCM.PN ---
Subjective - Date & Time of Evaluation Date of Evaluation: 12/13/16 Time of Evaluation: 06:54 - Subjective Subjective: Patient was seen at bedside. In response to a 'code marie' announcement. She was wandering in [facility], had received geodon 20 mg im at 6:35 Am. In a few minutes, laid down in bed, quiet now,Geodon is kicking in. Medical record was reviewed. This 71 year old woman was admitted with altered mental status. Has PMH of depression, dementia, schizophrenia, psychosis. Objective - Vital Signs/Intake and Output Vital Signs (last 24 hours): Temp Pulse Resp BP Pulse Ox 97.9 F 55 L 16 133/64 98 12/12/16 16:51 12/12/16 16:51 12/12/16 16:51 12/12/16 16:51 12/12/16 15:55 Intake and Output: 12/12/16 12/13/16 18:59 06:59 Intake Total 960 Balance 960 - Medications Medications: Current Medications Bisacodyl (Dulcolax) 10 mg RC DAILY PRN PRN Reason: Constipation Divalproex Sodium (Depakote Er(Once Daily)) 750 mg PO HS KATHERYN PRN Reason: Protocol Last Admin: 12/12/16 21:40 Dose: 750 mg Divalproex Sodium (Depakote Er(Once Daily)) 500 mg PO DAILY KATHERYN PRN Reason: Protocol Lorazepam (Ativan) 0.5 mg PO TID PRN; Protocol PRN Reason: Anxiety Last Admin: 12/13/16 02:16 Dose: 0.5 mg Quetiapine Fumarate (Seroquel Xr) 300 mg PO HS KATHERYN PRN Reason: Protocol Last Admin: 12/12/16 21:50 Dose: 300 mg Zaleplon (Sonata) 5 mg PO HS PRN PRN Reason: Insomnia Last Admin: 12/13/16 02:16 Dose: 5 mg Ziprasidone (Geodon Cap) 20 mg PO Q8 PRN; Protocol PRN Reason: Agitation Ziprasidone (Geodon Inj) 20 mg IM Q8 PRN; Protocol PRN Reason: Agitation Last Admin: 12/13/16 06:32 Dose: 20 mg - Constitutional Appears: Well, No Acute Distress - Head Exam Head Exam: ATRAUMATIC, NORMAL INSPECTION, NORMOCEPHALIC - Eye Exam Eye Exam: Normal appearance - ENT Exam ENT Exam: Normal External Ear Exam - Neck Exam Neck Exam: Normal Inspection - Respiratory Exam Respiratory Exam: NORMAL BREATHING PATTERN - Cardiovascular Exam Cardiovascular Exam: absent: JVD - GI/Abdominal Exam GI & Abdominal Exam: absent: Distended - Rectal Exam Rectal Exam: Deferred - Exam Additional comments: Deferred. - Extremities Exam Extremities Exam: Normal Inspection - Back Exam Back Exam: NORMAL INSPECTION - Neurological Exam Neurological Exam: Altered - Psychiatric Exam Psychiatric exam: Agitated - Skin Skin Exam: Normal Color Assessment and Plan - Assessment and Plan (Free Text) Assessment: Agitation. AMS. Depression. Psychosis. Dementia. Schizophrenia. Plan: Will watch patient. Will get 1:1 watch for one hour to see if Polina has really kicked in. Continue present management. Nurse should notify PMD.
[2016-12-13] MEDS: Divalproex 500 mg ER (ONCE DAILY formulation) PO SCH (12:35)
[2016-12-13 19:36] LABS: PH,URINE 6.5 (4.7-8.0); URINE BILIRUBIN NEGATIVE (NEGATIVE); URINE BLOOD NEGATIVE (NEGATIVE); URINE GLUCOSE (UA) NEGATIVE (NEGATIVE); URINE KETONE NEGATIVE (NEGATIVE); URINE LEUKOCYTE ESTERASE NEGATIVE Leu/uL (NEGATIVE); URINE PROTEIN NEGATIVE mg/dL (<30 mg/dL); URINE UROBILINOGEN 0.2 E.U./dL (<1 E.U./dL)
[2016-12-13 19:37] LABS: URINE APPEARANCE CLEAR (CLEAR); URINE COLOR YELLOW (YELLOW)
--- NOTE | 2016-12-13 21:37 | CON ---
DATE: HISTORY OF PRESENT ILLNESS: The patient is a 71-year-old male with history of possible traumatic brain injury, history of psychosis, history of being admitted to the psychiatric inpatient unit, which took place here in [place] in September 2016. The patient has history of aggressive and agitated behavior refusing to take medications back on the snf. The patient was sent by the snf for evaluation of aggressive and agitated behavior. The patient was yelling, cursing, verbal abusive, throwing things, and broke glass wall. Psych consult was called for evaluation of similar symptoms and the patient was admitted on the medical side for evaluation of altered mental status. This specifications writer is very familiar with this patient from the previous admission to the psychiatric inpatient unit. The patient has history of multiple psychiatric admissions. The patient has Alzheimer's dementia with the behavioral disturbances and history of bipolar disorder. 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 The specifications writer reviewed discharge note from the psychiatric conditions here in [place]. The patient was discharged on Depakote 500 mg in the morning time, 750 mg at the nighttime, Seroquel 300 mg at nighttime. Medications reviewed from the snf. The patient is on same medications at present but patient is on Ativan 0.5 mg three times a day in addition to the above main medications as well as Sonata 5 mg at nighttime as needed for insomnia. This specifications writer attempted to the speak to the patient today at the morning time. The patient was falling asleep during the interview. Based on collateral information and report from the [facility], the patient was agitated, aggressive, wondering on the unit on the medical side. Robe sanchez was called and the patient got IM dose of Geodon 20 mg. At the morning during the evaluation, the patient was not able to participate in the interview. PHYSICAL EXAMINATION: VITAL SIGNS: This specifications writer reviewed vital signs. Vital signs seems to be stable. Temperature 97.9, pulse 55, blood pressure 133/64, respirations 16, and oxygen saturation of 98%. MEDICATION REVIEWED: The patient is on Dulcolax, Depakote 750 at the nighttime and 500 mg at the morning time, Ativan 0.5 mg three times a day, Seroquel 300 mg at the nighttime extended release, Sonata 5 mg at the nighttime, Geodon 20 mg p.o. q. 8 hours as needed for agitation, Geodon 20 mg IM q. 8 hours as needed for agitation as well as this specifications writer will increase the dose of Seroquel because the patient was paranoid and delusional, was saying that he is an [employer] agent and he has secret mission, based on collateral information from nursing staff. LABORATORY DATA: Reviewed. Chemistry reviewed. Valproic acid less than 55. Urinalysis was not collected. Reports reviewed head CT scan was done. No acute findings. Electrocardiogram was done. He seems to be normal. MENTAL STATUS EXAMINATION: The patient is on 1:1. Had no eye contact, seems to be sedated, was able to open his eyes. Speech was minimal. The patient was falling asleep during the interview status post IM. The patient was not able to answer the questions about his mood. Falling asleep, but based on the presentation, the patient was disorganized. Thought process was disorganized and tangential. Thought content, the patient was delusional, was saying that he is an [employer] agent as well as he has secret mission. The patient was exhibiting like aggressive and agitated behavior back on the snf as well as on the medical side. Insight and judgment are impaired. Impulses are unpredictable. IMPRESSION: As per history, the patient has bipolar disorder as well as Alzheimer's dementia with behavioral disturbances. At present, the patient has deviation from the baseline. The patient has history of multiple admissions into the psychiatric inpatient unit in the past. Most likely, the patient suffer from traumatic brain injury. PLAN: Continue current management. The patient is on 1:1. This specifications writer will Increase the dose of Seroquel to 100 mg in the morning time and 300 mg at the nighttime, Ativan 25 mg three times a day as needed for anxiety. The patient is on Depakote 500 mg daily and 750 at the nighttime. Depakote level is low. If need to, we can increase the dose later on. The patient is on Sonata at the nighttime as needed for insomnia. Case will be discussed with Dr. Boykin. As needed medication will be given, Geodon p.o. and IM. Should they have any questions, give me call back. Urinalysis should be obtained because of delirium stage and a violent could be related to simple urinary tract infection. Thank you very much for letting me to participate in the care of your patient. Should they have any questions, give me a call back. Ashley Mojica MD
[2016-12-13] MEDS: Divalproex 250 mg ER (ONCE DAILY formulation) PO SCH (21:54)
[2016-12-13] MEDS: QUEtiapine 300 mg XR Tab PO SCH (21:54)
--- NOTE | 2016-12-13 23:11 | CP.PCM.PN ---
Subjective - Date & Time of Evaluation Date of Evaluation: 12/13/16 Time of Evaluation: 23:09 - Subjective Subjective: Nurse calls to have the 1:1 order discontinued. As per her patient has been calm in this shift so far and had been calm all day today. Rx, Will discontinue 1:1 order. Objective - Vital Signs/Intake and Output Vital Signs (last 24 hours): Temp Pulse Resp BP Pulse Ox 97.9 F 55 L 16 133/64 98 12/12/16 16:51 12/12/16 16:51 12/12/16 16:51 12/12/16 16:51 12/12/16 15:55 Intake and Output: 12/13/16 12/14/16 18:59 06:59 Intake Total 600 600 Output Total 300 Balance 600 300 - Medications Medications: Current Medications Bisacodyl (Dulcolax) 10 mg RC DAILY PRN PRN Reason: Constipation Divalproex Sodium (Depakote Er(Once Daily)) 750 mg PO HS KATHERYN PRN Reason: Protocol Last Admin: 12/13/16 21:54 Dose: Not Given Divalproex Sodium (Depakote Er(Once Daily)) 500 mg PO DAILY KATHERYN PRN Reason: Protocol Last Admin: 12/13/16 12:35 Dose: 500 mg Lorazepam (Ativan) 0.5 mg PO TID PRN; Protocol PRN Reason: Anxiety Last Admin: 12/13/16 12:35 Dose: 0.5 mg Quetiapine Fumarate (Seroquel Xr) 300 mg PO HS KATHERYN PRN Reason: Protocol Last Admin: 12/13/16 21:54 Dose: Not Given Quetiapine Fumarate (Seroquel) 100 mg PO DAILY KATHERYN PRN Reason: Protocol Last Admin: 12/13/16 12:35 Dose: 100 mg Zaleplon (Sonata) 5 mg PO HS PRN PRN Reason: Insomnia Last Admin: 12/13/16 02:16 Dose: 5 mg Ziprasidone (Geodon Cap) 20 mg PO Q8 PRN; Protocol PRN Reason: Agitation Ziprasidone (Geodon Inj) 20 mg IM Q8 PRN; Protocol PRN Reason: Agitation Last Admin: 12/13/16 18:01 Dose: 20 mg
--- NOTE | 2016-12-14 01:00 | PN ---
SUBJECTIVE: This is a 71-year-old male who was examined at his bedside where he had one-to-one psychiatric sitter because of aggressive behavior, psychosis, and agitation. I have discussed his case in detail with Dr. Ashley Mojica, psychiatry who agrees to take the patient to the psychiatric berry when a bed is available. The patient became acutely psychotic earlier this morning, wandered off the floor, and a Code Frye was called, the patient was returned to his room, he required parenteral Geodon for sedation and has been aggressive and agitated all day. PHYSICAL EXAMINATION: VITAL SIGNS: At present, he was recently medicated and has a temperature of 97.9, respirations 16, pulse 55, and blood pressure 133/64 with a pulse ox of 98% on room air. HEAD: His head is normocephalic, atraumatic. His eyes show no icterus. Ears clear. Throat is non-injected. NECK: Supple. HEART: Regular. S1 and S2. LUNGS: Clear. ABDOMEN: Soft. EXTREMITIES: No edema. SKIN: Without rash. NEUROLOGIC: Intact. PSYCHOLOGIC: Sedated, but responsive. VASCULAR: Legs are warm to touch. LABORATORY DATA: Valproic acid level is 55, normal being 50 to 100. White count 6300, hemoglobin 12.8, hematocrit 38.6, and platelets 257,000. Urinalysis, I am waiting for the urinalysis to come up on the screen. His sodium is 145, potassium 3.9, chloride 104, bicarbonate 30, BUN 17, and creatinine 0.9. Random blood sugar is 105. Iron level 51, TIBC 304, percent saturation 17, ferritin 144. AST 17, ALT 31, alk phos 71. B12 level normal at 439, folic acid level 9.1. Urinalysis negative. IMPRESSION: This is a 71-year-old male with history of psychosis, depression, agitation, and now with anemia mostly likely chronic disease. PLAN: As discussed with Dr. Ashley Mojica, is to admit this patient to psychiatry where he will need to have his medication adjusted. He will need a one-to-one psychiatric sitter. In the meantime, he has been medically cleared for transfer. The patient when clinically stable in his detention environment can be considered for colonoscopy and endoscopy by his primary care physician If this has not already been done in the recent past. He will continue on a heart healthy diet and one-to-one sitter. Medications now include Seroquel 300 mg p.o. at bedtime and 100 p.o. daily, Geodon 20 mg IM q. 8 hours p.r.n. agitation, Depakote 500 mg p.o. daily and 750 mg p.o. at bedtime, and Ativan 0.5 mg p.o. t.i.d. p.r.n. agitation. He will require close medical and psychiatric monitoring. Ultimate plan is for discharge to his detention environment for penitentiary care when medically stable. Overall prognosis remains poor. Celeste Boykin MD MTDD
[2016-12-14] MEDS: Divalproex 500 mg ER (ONCE DAILY formulation) PO SCH (11:50)
--- NOTE | 2016-12-14 16:46 | PN ---
DATE: HISTORY OF PRESENT ILLNESS: The patient is a 71-year-old male with history of schizophrenia, history of Alzheimer's dementia with behavioral disturbances. Patient was send from the [facility] for evaluation and stabilization of agitated and restless behavior. Also patient was psychotic. Initially, patient was admitted on the medical site. He was cleared from the medical standpoint. At present moment, patient meets the criteria for psychiatric inpatient admission. Patient presented to be psychotic. Patient said that he is fighting with Jake, who works for [employer], but patient said "I am stronger than him". Patient reported that there is some conspiracy going on in the [facility] and staff is sending him here just stay to get rid of him. Patient obviously paranoid and disorganized. At the same time, patient acknowledge that he needs to have help, willing to take medication, wants to feel better. Patient was interviewed with South Korean speaking nurse and patient sent consent in front of this financial writer. Patient does not have POA. As per reports from the medical site, patient was agitated neither to be medicated with IM Geodon which he responded very well. The patient presented a little bit better to compare with the time of admission. Labs reviewed. Urinalysis is within normal limits. Vital signs are within normal limits. Patient will be transferred to the psychiatric inpatient unit. MEDICATIONS: Medications reviewed. Patient is on Dulcolax, Depakote 750 mg at the nighttime and 500 mg in the morning time, Ativan 0.5 mg three times a day, Seroquel extended release 300 mg at the nighttime, Seroquel 100 mg by mouth daily was started by this financial writer, Sonata 5 mg as needed for insomnia at the nighttime, Geodon 20 mg by mouth q. 8 hours p.r.n. and IM q. 8 hours as needed for agitation. Patient got two doses of Geodon IM on 12/13/2016. MENTAL STATUS EXAMINATION: The patient is South Korean speaking. Patient was interviewed by South Korean speaking nurse. Intermittent eye contact. Speech was disorganized. Mood described as "I am okay." Affect was flat. Thought process was disorganized . Thought content, the patient is psychotically disorganized. I think that he is stronger than [employer] agent, Levemon. Patient denied thoughts of harming himself or others. Denied intent or plan. Insight and judgment are limited. Impulses are unpredictable. IMPRESSION: As per history of schizophrenia, as per history of Alzheimer's dementia with behavioral disturbances, multiple medical issues. Please see medical team note for more detailed information. PLAN: Continue current management. Continue medication. Patient signed consent for treatment. He will be transferred to the psychiatric inpatient unit for further evaluation and stabilization. Patient does not have POA. Patient has capacity to sign consent for treatment at this moment. Thank you very much for letting me to participate in the care of your patient. Should they have any questions, give me a call back. Ashley Mojica MD
--- NOTE | 2016-12-15 10:39 | DS ---
FINAL DIAGNOSES: Acute psychosis, chronic depression, Alzheimer's dementia and anemia of chronic disease. DISPOSITION: 5 B Psychiatric Unit in the [facility]. DISCHARGE DIET: Soft, bland heart healthy. DISCHARGE MEDICATIONS: Ativan 0.5 mg p.o. t.i.d. p,r,n. anxiety, Depakote 750 mg p.o. at bedtime, Depakote 500 mg p.o. daily, Geodon 20 mg IM q. 8 hours p.r.n. anxiety, Seroquel 100 mg p.o. daily, and Seroquel XR 300 mg p.o. at bedtime. SUMMARY: This 71-year-old male was admitted to the medical service for altered mental status in the setting of acute psychosis and history of Alzheimer's dementia, depression and paranoid schizophrenia. The patient required a one-to-one psychiatric sitter because of a code Frye and aggressive,delusional behavior. He was seen in consultation by Dr. Ashley Mojica from psychiatry who agreed to voluntarily admit this patient to the Psychiatric Unit. On the medical berry, he was noted to have anemia of chronic disease and he remains stable at present. The patient will continue on psychotropic medications as outlined. I will recommend that the patient have a colonoscopy and endoscopy under the direction of his primary care physician at the [facility] where he resides as a chronic [facility] patient when medically stable if this testing has not been completed in the recent past already. All this was discussed with the patient and Dr. Mojica in detail The patient remains clinically stable, but will require psychotropic medication adjustment, and overall prognosis is poor but stable at present. The case was reviewed with patient, one-to-one sitter, Dr. Mojica and nursing. Greater than fifty minutes were spent in the care and management of this patient today. Celeste Boykin MD MTDD
== END 2016-12-14 10:07 | DRG 57 ==
LOC: ED 11:20 → ERH 14:14 → 5RNO 15:27
PROVIDERS: ADMIT Internal Medicine; ATTEND Internal Medicine
DX: G30.9 Alzheimer's disease, unspecified (principal); F02.81 Dementia in other diseases classified elsewhere, unspecified severity, with behavioral disturbance; D63.8 Anemia in other chronic diseases classified elsewhere; F23 Brief psychotic disorder; F25.0 Schizoaffective disorder, bipolar type; R41.82 Altered mental status, unspecified; Z91.83 Wandering in diseases classified elsewhere; Z98.2 Presence of cerebrospinal fluid drainage device; Z87.891 Personal history of nicotine dependence

== ENCOUNTER 2016-12-14 12:48 | Inpatient (IN) | payer MEDICARE, MEDICAID ==
[2016-12-14] MEDS ORDERED: Magnesium Hydroxide Susp 30 ml UD PO PRN (14:56)
[2016-12-14] MEDS ORDERED: Alum-Mag Hydrox-Simethicone Susp (30 mL) PO PRN (14:56)
--- NOTE | 2016-12-14 17:51 | PCM.BM ---
<Dario Yusufs - Last Filed: 12/14/16 17:47> Treatment Plan Problems - Problems identified on initial assessmt Anger/aggression/violence Date Initiated: 12/14/16 Time Initiated: 14:00 Assessment reference: NA Status: Active Priority: 1 Medication nonadherence Date Initiated: 12/14/16 Time Initiated: 14:00 Assessment reference: NA Status: Active Priority: 2 Inappropriate behavior Date Initiated: 12/14/16 Time Initiated: 14:00 Assessment reference: NA Status: Active Priority: 3 Treatment assets and liabiliti Patient Assests: ADL independent, negotiates basic needs Patient Liabilities: imparied memory - Milieu Protocol Maintain good personal hygiene: every shift Encourage regular showers, every shift Remind patient to perform daily oral care, every shift Assist patient to perform ADL's Maintain personal safety: every shift Educate patient to report safety concerns to staff Medication safety: Monitor for expected outcome, potential side effects: every shift, Assess barriers to learning: every shift, Assess readiness for medication education: every shift Discharge/Continuing Care - Education Needs Education Needs: Patient Medication, Patient Diagnosis/Disease Process, Patient Coping Skills, Patient Anger Management skills, Patient Community resources, Patient Activities of Daily Living, Patient Nutrition, Patient Health Practices/ Safety, Patient Personal Hygiene/Grooming - Discharge Discharge Criteria: Tolerates medication w/o severe side effects, Free of agitation, Normal sleep pattern, Ability to care for self, Reduction of target symptoms <Ashley Mojica - Last Filed: 12/15/16 08:57> - Diagnosis (1) Schizoaffective disorder, bipolar type Status: Acute Interventions: 12/15/16 08:57 Psychoeducation/psychotherapy Psychopharmacology/adjustment of medications as needed/ monitoring possible side effects Evaluate pt on daily basis Compliance with medications and follow up appointments Long acting medication if pt is noncompliant with pill form Suicide and homicide risk assessment and prevention, coping strategies, safety plan Relapse prevention Reduction of symptoms Improve functional status Possible assertive community treatment Cognitive behavioral therapy Family intervention Possible social skill training as outpatient (2) Alzheimer's dementia with behavioral disturbance Status: Acute Interventions: 12/15/16 08:58 neurology f/u as needed meds adjustment safety precautions family involvement redirection Additional consultation by specialists as needed Lab work as needed (CBC, CMP, TSH, free T4, UA) Physical therapy valuation as needed (3) Altered mental status Status: Acute Interventions: 12/15/16 08:59 Pt will be seen by medical team as needed Medications will be confirmed and resumed Additional consultation by specialists as needed Lab work as needed (CBC, CMP, TSH, free T4, UA, Urine test for females as needed) CXR as needed EKG Physical therapy valuation as needed <Veronica Villatoro - Last Filed: 12/17/16 08:15> Family Contact - Outside Agency [facility] involvment: Following patient during stay, Information-sharing <Carmen Andrade - Last Filed: 12/18/16 15:14>
[2016-12-14] MEDS: Divalproex 250 mg ER (ONCE DAILY formulation) PO SCH (21:29)
[2016-12-14] MEDS: QUEtiapine 300 mg XR Tab PO SCH (21:38)
[2016-12-15 07:08] LABS: CHOLESTEROL 211 mg/dL (130-200); GLUCOSE,FASTING 85 mg/dL (65-110)
[2016-12-15] MEDS: Divalproex 500 mg ER (ONCE DAILY formulation) PO SCH (09:03)
--- NOTE | 2016-12-15 11:31 | PCM.PSYCH ---
Initial Psychiatric Evaluation - Initial Psychiatric Evaluation Type of Admission: Voluntary Legal Status: Capacity (patient has capacity to sign consent for treatment) Chief Complaint (in patient's own words): "I don't think I have a special power..." Patient's Reaction to Hospitalization: pt was transferred from the medical floor where he was admitted for AMS, pt was found psychotic, disorganized, need to have IM PRN medications, pt deemed to be in danger to self and others, needs further evaluation and stabilization, meds adjustment. pt has a capacity to sign consent for treatment. History of Present Illness and Precipitating Events: Shortly pt is 71 yo male with reported h/o Alzheimer's dementia with behavioral disturbances, ?h/o bipolar disorder, ?multiple psychiatric admissions in the past, most recent was in September 2016, pt was sent from the [facility] for evaluation change in mental status, pt was aggressive, agitated, psychotic in [place] , was throwing, breaking things, pt broke a glass wall, pt was admitted on the medical side for AMS, was stabilized, then was offered admission, pt sign consent for tx yesterday, all meds resumed and adjusted. Pt needs further evaluation and stabilization, pt required frequent IMs on the med side, was found to be in threat to self and others. this mortgage underwriter is very familiar with this pt from the last admission, pt was seen in his room today with NORMA Adan, pt has acceptable personal hygiene, appeared careless about his hygiene, fair ADLs. pt was interviewed with Romanian speaking NORMA Adan. Pt still psychotic, disorganized, paranoid, but with some mild improvement, pt said that he does not feel that he is having any special de anda. pt at times less confused and able to communicate his needs in Mauritanian. pt required IM of Geodon yesterday upon arrival. pt presented to be emotionally labile, at times screams and yells, at times calm. pt seems to have loud voice, but speech is less pressured. pt denied v/a/t hallucinations, denied paranoid ideation, but obviously psychotic.. pt tolerated meds well, no side effects observed or reported. Impulse control is unpredictable and his insight and judgment are poor. pt denied using alcohol, denied drugs, denied smoking. past psych h/o: h/o bipolar, h/o Alzheimer's dementia with behavioral disturbances. 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 family h/o: not known. Lab Results 12/15/16 06:00: TSH 3rd Generation 2.41 12/15/16 06:00: Fasting Glucose 85, Triglycerides 177 H, Cholesterol 211 H, LDL Cholesterol Direct 145 H, HDL Cholesterol 40 Vital Signs Pulse Resp BP 12/14/16 16:53 67 121/80 12/14/16 13:20 17 Current Medications: Active Medications Generic Name Dose Route Start Last Admin Trade Name Freq PRN Reason Stop Dose Admin Acetaminophen 650 mg 12/14/16 14:39 Tylenol 325mg Tab PO Q6H PRN Pain, moderate (4-7) Al Hydrox/Mg Hydrox/Simethicone 30 ml 12/14/16 14:56 Maalox Plus 30 Ml PO DAILY PRN Indigestion / Heartburn Divalproex Sodium 750 mg 12/14/16 22:00 12/14/16 21:29 Depakote Er(Once Daily) PO 750 mg HS KATHERYN Administration Protocol Divalproex Sodium 500 mg 12/15/16 08:00 Depakote Er(Once Daily) PO DAILY KATHERYN Protocol Lorazepam 0.5 mg 12/14/16 14:58 12/15/16 02:50 Ativan PO 0.5 mg TID PRN Administration Agitation Protocol Magnesium Hydroxide 30 ml 12/14/16 14:56 Milk Of Magnesia PO DAILY PRN Constipation Quetiapine Fumarate 300 mg 12/14/16 22:00 12/14/16 21:38 Seroquel Xr PO 300 mg HS KATHERYN Administration Protocol Quetiapine Fumarate 100 mg 12/15/16 08:00 Seroquel PO DAILY KATHERYN Protocol Zaleplon 5 mg 12/14/16 15:14 12/14/16 21:38 Sonata PO 5 mg HS PRN Administration Insomnia Ziprasidone 20 mg 12/14/16 15:15 Geodon Cap PO Q8H PRN Agitation Protocol Ziprasidone 20 mg 12/14/16 15:17 12/14/16 15:47 Geodon Inj IM 20 mg Q8H PRN Administration Agitation Protocol Past Psychiatric History - Past Psychiatric History Previous Treatment History: Inpatient Prior Professional Help: see HPI Prior Psychiatric Treatment: see HPI At what hospital: see HPI Duration: see HPI Nature of Treatment: see HPI Explanation of prior treatment: see HPI History of Abuse: see HPI denied History of ETOH/Drug Use: denied History of Family Illness: see HPI Pertinent Medical Hx (Current Medical&Sleep Prob, Allergies): Allergies Allergy/AdvReac Type Severity Reaction Status Date / Time No Known Allergies Allergy Verified 12/14/16 13:09 Acetaminophen [Non-Aspirin Pain Relief] 650 mg PO PRN PRN 10/02/16 Divalproex [Depakote ER(ONCE DAILY)] [address] 10/14/16 Divalproex [Depakote ER(ONCE DAILY)] [address] 10/14/16 QUEtiapine [Seroquel XR] [address] 10/14/16 Bisacodyl [Fast Relief Laxative] 10 mg RC PRN PRN 12/12/16 Zaleplon [Sonata] 1 tab PO HS 12/12/16 Ziprasidone HCl [Geodon] 20 mg PO Q8H PRN 12/12/16 Bisacodyl [Dulcolax] 10 mg RC DAILY PRN sup 12/14/16 Divalproex [Depakote ER(ONCE DAILY)] [address] 12/14/16 Divalproex [Depakote ER(ONCE DAILY)] [address] 12/14/16 LORazepam [Ativan] 0.5 mg PO TID PRN tab 12/14/16 QUEtiapine [Seroquel XR] [address] 12/14/16 QUEtiapine [Seroquel] 100 mg PO DAILY tab 12/14/16 Zaleplon [Sonata] 5 mg PO HS PRN cap 12/14/16 Ziprasidone [Geodon Cap] 20 mg PO Q8 PRN cap 12/14/16 Ziprasidone [Geodon Inj] 20 mg IM Q8 PRN vial 12/14/16 Review of Systems - Review of Systems Systems not reviewed;Unavailable: Acuity of Condition - EENT Eyes: As Per HPI Ears: As Per HPI Nose/Mouth/Throat: As Per HPI - Cardiovascular Cardiovascular: As Per HPI - Respiratory Respiratory: As Per HPI - Gastrointestinal Gastrointestinal: As Per HPI - Genitourinary Genitourinary: As Per HPI - Reproductive: Male Reproductive:Male: As Per HPI - Musculoskeletal Musculoskeletal: As Par HPI - Integumentary Integumentary: As Per HPI - Neurological Neurological: As Per HPI - Psychiatric Psychiatric: As Per HPI - Endocrine Endocrine: As Per HPI - Hematologic/Lymphatic Hematologic: As Per HPI Mental Status Examination - Personal Presentation Personal Presentation: Looks stated age - Affect Affect: Constricted (at times irritable, angry) - Motor Activity Motor Activity: Psychomotor Agitation - Reliability in Providing Information Reliability in Providing Information: Poor, due to altered mood, Poor, due to cognitve impairment - Speech Speech: Disorganized - Mood Mood: Depressed - Formal Thought Process Formal Thought Process: Hallucinations, Delusions, Paranoia, Loosening of associations - Hallucinations/Delusions Delusions: Persecution - Obsessions/Compulsions Obsessions: None Compulsions: None - Cognitive Functions Orientation: Person, Place Sensorium: Alert Attention/Concentration: Easily distracted Abstract Thinking: [place] Estimate of Intelligence: Below average Judgement: Intact, as evidence by: Insight regarding need for hospitalization - Risk Risk: Self-mutilation, Diminished functioning - Strength & Assets Inventory Strength & Assets Inventory: Life experience, Cooperative - Limitations Limitations: Other (dementia, psychosis) DSM 5 DX - DSM 5 DSM 5 Diagnosis: h/o bipolar disorder (vs schizophrenia) alzheimer's dementia with behavioral disturbances r/o delirium (better) - Recommended/Plan of Treatment Treatment Recommendations and Plan of Treatment: milieu/structure/supportive therapy family involvement meds reviewed, resumed Divalproex [Depakote ER(ONCE DAILY)] 500 mg PO DAILY for mood stabilization Divalproex [Depakote ER(ONCE DAILY)] 750 mg PO HS for mood stabilization will f/u on the depakote level QUEtiapine [Seroquel XR] [address] for psychosis and mood stabilization seroquel 100mg po am for psychosis and mood stabilization Bisacodyl [Fast Relief Laxative] 10 mg RC Zaleplon [Sonata] 5mg PO HS Ziprasidone HCl [Geodon] 20 mg PO Q6H PRN geodon IM 20mg q8hr prn for agitation LORazepam [Ativan] 0.5 mg PO TID PRN for agitation and anxiety medical f/u family involvement SW evaluation will monitor closely Projected ELOS: 7days Prognosis: guarded Discharge Plan and Discharge Criteria: Pt will be not depressed or manic, will be more hopeful, will be not psychotic or anxious, will be not having thoughts of harming self or others, will be tolerating medications well, will not have major side effects, will be able to function, will not pose threat to self or others. - Smoking Cessation Smoking Cessation Initiated: No Reason for not providing: denied smoking
--- NOTE | 2016-12-15 20:43 | PN ---
DATE: 12/15/2016 SUBJECTIVE: This 71-year-old male who was examined in the physiatric unit. His case was reviewed with himself and his nursing staff. He has been admitted for recurrent depression, anxiety, psychosis and delusional hallucinations and aggressive and agitated behavior. PAST MEDICAL HISTORY: Significant for anemia of chronic disease and hyperlipidemia and at present the patient remains confused. He has a history of organic brain syndrome and longstanding psychosis. PHYSICAL EXAMINATION: GENERAL: The patient is denying fevers, chills, chest pain or shortness of breath. VITAL SIGNS: He is afebrile with respiratory rate of 17, pulse of 67, and blood pressure 125/69 and pulse ox of 98% on room air. HEAD: His head is normocephalic, atraumatic. Eyes no icterus. Ears clear. Throat is non-injected. NECK: Supple. HEART: Regular. S1 and S2. LUNGS: Clear. ABDOMEN: Soft. EXTREMITIES: No edema. SKIN: Warm and dry. VASCULAR: Legs are warm to touch. PSYCHOLOGIC: Alert, but confused. NEUROLOGIC: Grossly intact. LABORATORY DATA: TSH level is normal at 2.41. Random cholesterol 211. IMPRESSION: A 71-year-old male with multiple medical problems including paranoid schizophrenia, longstanding psychosis, agitation, acute anxiety, depression, delusional psychosis with hallucination and aggressive behavior. PLAN: The plan is to maintain this patient on the psychiatric berry receiving Ativan 0.5 mg p.o. t.i.d., p.r.n. agitation, Depakote 750 mg p.o. at bedtime, Depakote 500 mg p.o. daily, Geodon 20 mg IM q. 8 hours p.r.n. agitation, Seroquel 100 mg p.o. daily and 300 mg p.o. at bedtime. He continues on a heart-healthy low-cholesterol diet and will need to have his cholesterol levels monitored by his primary care physician upon return to the [facility] where he has his prison care. The patient will also need to be considered for colonoscopy and endoscopy for completeness sake, this is not yet been done in the recent past and if his primary care physician deems it worthy. I will continue to follow the patient while he is in psychiatric care under the direction of Dr. Ashley Mojica. Celeste Boykin MD [facility] # [id number]
[2016-12-15] MEDS: Divalproex 250 mg ER (ONCE DAILY formulation) PO SCH (22:01)
[2016-12-15] MEDS: QUEtiapine 300 mg XR Tab PO SCH (22:02)
[2016-12-16] MEDS: Divalproex 500 mg ER (ONCE DAILY formulation) PO SCH (09:10)
--- NOTE | 2016-12-16 14:48 | PCM.PYCHPN ---
Psychiatric Progress Note - Psychiatric Progress Note Patient seen today, length of contact: 30min Patient Chief Complaint: "first I need to introduce myself, I am responsible only for myself, I am number one" Problems Identified/Issues Discussed: Suicide/ homicide prevention, past psychiatric h/o, current psychiatric symptoms , medical problems, risk/benefits and alternatives of medications, medications compliance, coping strategies, substance abuse h/o, relapse prevention, importance of follow up with psychiatrist and therapist, discharge plan. Medical Problems: dementia, constipation Diagnostic Results: Lab Results 12/15/16 06:00: TSH 3rd Generation 2.41 12/15/16 06:00: Fasting Glucose 85, Triglycerides 177 H, Cholesterol 211 H, LDL Cholesterol Direct 145 H, HDL Cholesterol 40 Vital Signs Temp Pulse Resp BP 12/16/16 06:45 98.7 F 54 L 134/74 12/15/16 16:46 64 125/69 12/14/16 16:53 67 121/80 12/14/16 13:20 17 DSM 5 Symptoms Update: Shortly pt is 71 yo male with reported h/o Alzheimer's dementia with behavioral disturbances, ?h/o bipolar disorder, ?multiple psychiatric admissions in the past, most recent was in September 2016, pt was sent from the [facility] for evaluation change in mental status, pt was aggressive, agitated, psychotic in [place] , was throwing, breaking things, pt broke a glass wall, pt was admitted on the medical side for AMS, was stabilized, then was offered admission, pt sign consent for tx yesterday, all meds resumed and adjusted. Pt needs further evaluation and stabilization, pt required frequent IMs on the med side, was found to be in threat to self and others. this advertising writer is very familiar with this pt from the last admission, pt was seen at the treatment team room to, pt was able to communicate n [place] much better. while pt was on the medical side pt did not speak [place] at all, most likely it is related to psychosis and change in mental status. pt was able to communicate his needs, was able to participate in the tx team meeting. pt said that he is "number one, I like to be alone, noone is going to change my mind". when pt was asled about special power which pt claimed to have on the medical side, pt said "what power?". pt is improving pt tolerated meds well, no side effects observed or reported. AIMS 0, no EPS. Impulse control is unpredictable and his insight is improving. as per staff pt is compliant with meds and trying to attend groups, just observing. Impression: h/o shcizophrenia vs schizoaffective disorder bipolar type demenita pt said that he is craving to smoke, pt said he is not smoking yesterday, pt was not able to provide info how many cigarettes he is smoking, was offered nicotine patch, but pt was not willing to take it. Medication Change: Yes (seroquel increased) Medical Record Reviewed: Yes Consults ordered or reviewed: medical f/u was called Mental Status Examination - Cognitive Function Orientation: Person, Place Memory: Impaired (pt is demented ) Attention: Poor Concentration: Poor Association: Loose Fund of Knowledge: Poor - Mood Mood: Depressed - Affect Affect: Constricted (at times irritable, angry) - Formal Thought Process Formal Thought Process: Hallucinations, Delusions, Paranoia, Loosening of associations - Suicidal Ideation Suicidal Ideation: No - Homicidal Ideation Homicidal Ideation: No Goal/Treatment Plan - Goal/Treatment Plan Need for Continued Stay: Remain at risks for inpatient hospitalization, Severe depression anxiety, Discharge may exacerbated symptoms, Severe functional impairment Progress Toward Problem(s) and Goals/Treatment Plan: milieu/structure/supportive therapy family involvement meds reviewed, resumed Divalproex [Depakote ER(ONCE DAILY)] 500 mg PO DAILY for mood stabilization Divalproex [Depakote ER(ONCE DAILY)] 750 mg PO HS for mood stabilization will f/u on the depakote level QUEtiapine [Seroquel XR] [address] for psychosis and mood stabilization seroquel 100mg po am for psychosis and mood stabilization Bisacodyl [Fast Relief Laxative] 10 mg RC Zaleplon [Sonata] 5mg PO HS Ziprasidone HCl [Geodon] 20 mg PO Q6H PRN geodon IM 20mg q8hr prn for agitation LORazepam [Ativan] 0.5 mg PO TID PRN for agitation and anxiety medical f/u family involvement SW evaluation will monitor closely Estimated Date of D/C: 12/19/16 (will monitor closely) - Smoking Cessation Smoking Cessation Initiated: Yes
--- NOTE | 2016-12-16 17:39 | PN ---
SUBJECTIVE: This is a 71-year-old male remains hospitalized on the Psychiatric Unit under the direction of Dr. Ashley Mojica for recurrent psychosis with hallucinations and aggressive behavior. His case was reviewed in detail with nurse, Loco Yusuf, registered nurse who states that the patient required intramuscular Geodon because of agitation and remained confused and easily agitated. There have been no reports of fever, chest pain, shortness of breath, nausea, or vomiting. PHYSICAL EXAMINATION: VITAL SIGNS: Temperature of 98.7, respirations 17, pulse 54, and blood pressure 134/74 with a pulse ox of 98% on room air. HEENT: Head is normocephalic and atraumatic. Eyes no icterus. Ears clear. Throat non-injected. NECK: Supple. HEART: Regular. S1 and S2. LUNGS: Clear. ABDOMEN: Soft. EXTREMITIES: No edema. SKIN: Without rash. NEUROLOGIC: Intact. PSYCHOLOGIC: Chronic confusion. VASCULAR: Legs are warm to touch. LABORATORY DATA: TSH level is normal at 2.41. Blood sugar 85. IMPRESSION: A 71-year-old male with long-standing history of paranoid schizophrenia, bipolar psychosis, delusional hallucinations with episode of agitation, Alzheimer's dementia, anemia of chronic disease, and hyperlipidemia. PLAN: At present is to maintain the patient on the Psychiatric Unit on a heart healthy bland diet. He is receiving Ativan 0.5 mg p.o. t.i.d. p.r.n. for anxiety, Depakote 750 mg p.o. at bedtime, Depakote 500 mg p.o. daily, Geodon 20 mg IM q. 8 hours p.r.n. for agitation, Seroquel 100 mg p.o. daily and Seroquel 300 p.o. at bedtime. He is being seen daily by Psychiatry, who is adjusting medication accordingly. His ultimate plan will be to return to his snf half-way environment at the [facility] in [facility] where he receives a psychiatric and primary care. His overall prognosis remains poor and he will be continued to be treated in a conservative and compassionate way. Celeste Boykin MD [facility]
[2016-12-16] MEDS: Divalproex 250 mg ER (ONCE DAILY formulation) PO SCH (21:14)
[2016-12-16] MEDS: QUEtiapine 300 mg XR Tab PO SCH (21:15)
[2016-12-17] MEDS: Divalproex 500 mg ER (ONCE DAILY formulation) PO SCH (08:40)
--- NOTE | 2016-12-17 14:28 | PN ---
DATE: 12/17/2016 SUBJECTIVE: This 71-year-old male was examined in the physiatric unit. His case was reviewed in detail with charge nurse, Shila Lopez. The patient denies any chest pain, shortness of breath, fever, or chills and has been medicated with psychotropic medication including Geodon, Seroquel, Depakote, and Ativan. He is followed daily by Dr. Ashley Mojica from Psychiatry. The patient remains delusional with paranoid schizophrenia. He also remains anxious and aggressive at times. PHYSICAL EXAMINATION: VITAL SIGNS: Temperature is 97.4, respirations 20, pulse 61, blood pressure 120/74, pulse oximetry was 98% on room air. HEENT: HEAD: His head is normocephalic, atraumatic. Eyes no icterus. Ears clear. Throat is non-injected. NECK: Supple. HEART: Regular. S1 and S2. LUNGS: Clear. ABDOMEN: Soft. EXTREMITIES: No clubbing. No cyanosis. No edema. SKIN: Without rash. NEUROLOGICAL: Grossly intact. PSYCHOLOGIC: Confused, delusional, psychotic. VASCULAR: Legs warm to touch. LABORATORY DATA: TSH 2.41 normal. Random cholesterol 211. Fasting glucose 85. IMPRESSION: A 71-year-old male with multiple medical problems including paranoid schizophrenia, agitation syndrome, history of aggressive behavior, history of delusional psychosis, also with depression, anxiety, and anemia of chronic disease. PLAN: The plan at present is to continue heart healthy soft bland diet. He will continue on Ativan 0.5 mg p.o. t.i.d. p.r.n. anxiety, Depakote 750 mg p.o. at bedtime, Depakote 500 mg p.o. daily, Geodon 20 mg IM q. 8 hours p.r.n. agitation, Seroquel 100 mg p.o. daily and Seroquel XR 300 mg p.o. at bedtime and ultimate plan is for this patient to return to the [facility] for his [facility] care when he is psychologically and medically stable. Overall prognosis remains guarded. Celeste Boykin MD [facility] # [id number] MTDD
--- NOTE | 2016-12-17 15:46 | PCM.PYCHPN ---
Psychiatric Progress Note - Psychiatric Progress Note Patient seen today, length of contact: 30min Patient Chief Complaint: "I am a messiah" Problems Identified/Issues Discussed: Suicide/ homicide prevention, past psychiatric h/o, current psychiatric symptoms , medical problems, risk/benefits and alternatives of medications, medications compliance, coping strategies, substance abuse h/o, relapse prevention, importance of follow up with psychiatrist and therapist, discharge plan. Medical Problems: dementia, constipation Diagnostic Results: Lab Results 12/15/16 06:00: TSH 3rd Generation 2.41 12/15/16 06:00: Fasting Glucose 85, Triglycerides 177 H, Cholesterol 211 H, LDL Cholesterol Direct 145 H, HDL Cholesterol 40 Vital Signs Temp Pulse Resp BP 12/16/16 06:45 98.7 F 54 L 134/74 12/15/16 16:46 64 125/69 12/14/16 16:53 67 121/80 12/14/16 13:20 17 DSM 5 Symptoms Update: Shortly pt is 71 yo male with reported h/o Alzheimer's dementia with behavioral disturbances, ?h/o bipolar disorder, ?multiple psychiatric admissions in the past, most recent was in [facility] September 2016, pt was sent from the [facility] for evaluation change in mental status, pt was aggressive, agitated, psychotic in [place] , was throwing, breaking things, pt broke a glass wall, pt was admitted on the medical side for AMS, was stabilized, then was offered admission, pt sign consent for tx yesterday, all meds resumed and adjusted. Pt needs further evaluation and stabilization, pt required frequent IMs on the med side, was found to be in threat to self and others. this designer/writer is very familiar with this pt from the last admission, pt was seen next to the nursing station, pt was talking in more confused state, pt said that he is a messiah, as per RN report pt was screaming, no physical aggression , during hs groups, pt was observed talking to the cup next to him. seroquel was increased yesterday, will check depakote level. pt tolerated meds well, no side effects observed or reported. AIMS 0, no EPS. Impression: h/o shcizophrenia vs schizoaffective disorder bipolar type demenita Medication Change: No (seroquel increased yesterday) Medical Record Reviewed: Yes Consults ordered or reviewed: medical f/u was called Mental Status Examination - Cognitive Function Orientation: Person, Place Memory: Impaired (pt is demented ) Attention: Poor Concentration: Poor Association: Loose Fund of Knowledge: Poor - Mood Mood: Depressed - Affect Affect: Constricted (at times irritable, angry) - Formal Thought Process Formal Thought Process: Hallucinations, Delusions, Paranoia, Loosening of associations - Suicidal Ideation Suicidal Ideation: No - Homicidal Ideation Homicidal Ideation: No Goal/Treatment Plan - Goal/Treatment Plan Need for Continued Stay: Remain at risks for inpatient hospitalization, Severe depression anxiety, Discharge may exacerbated symptoms, Severe functional impairment Progress Toward Problem(s) and Goals/Treatment Plan: milieu/structure/supportive therapy family involvement meds reviewed, resumed Divalproex [Depakote ER(ONCE DAILY)] 500 mg PO DAILY for mood stabilization Divalproex [Depakote ER(ONCE DAILY)] 750 mg PO HS for mood stabilization will f/u on the depakote level tomorrow QUEtiapine [Seroquel XR] [address] for psychosis and mood stabilization seroquel 100mg po am for psychosis and mood stabilization Bisacodyl [Fast Relief Laxative] 10 mg RC Zaleplon [Sonata] 5mg PO HS Ziprasidone HCl [Geodon] 20 mg PO Q6H PRN geodon IM 20mg q8hr prn for agitation LORazepam [Ativan] 0.5 mg PO TID PRN for agitation and anxiety medical f/u family involvement SW evaluation will monitor closely Estimated Date of D/C: 12/19/16 (will monitor closely)
[2016-12-17] MEDS: Divalproex 250 mg ER (ONCE DAILY formulation) PO SCH (21:14)
[2016-12-17] MEDS: QUEtiapine 300 mg XR Tab PO SCH (21:14)
[2016-12-18] MEDS: Divalproex 500 mg ER (ONCE DAILY formulation) PO SCH (08:05)
--- NOTE | 2016-12-18 14:44 | PN ---
DATE: 12/18/2016 SUBJECTIVE: This 71-year-old male remains hospitalized and according to the psychiatric nursing staff remains confused and easily agitated. He is followed daily by psychiatrist Dr. Ashley Mojica, who is treating the patient for paranoid schizophrenia, aggressive behavior, agitation, and confusion. The patient required parenteral Geodon while on the psychiatric unit because of severe agitation and he remains delusional and paranoid. PHYSICAL EXAMINATION: VITAL SIGNS: At present time; temperature of 97.4, respirations 20, pulse 66 and blood pressure 102/62. HEENT: Head is normocephalic, atraumatic. Eyes no icterus. Ears clear. Throat is non-injected. NECK: Supple. HEART: Regular. S1 and S2. LUNGS: Clear. ABDOMEN: Soft. EXTREMITIES: No edema. SKIN: Without rash. NEUROLOGICAL: Intact. PSYCHOLOGIC: Chronic confusion. LABORATORY DATA: Labs on the berry showed a sugar of 85, a cholesterol of 211 and a TSH of 2.41 normal. IMPRESSION: This is a 71-year-old male with paranoid schizophrenia, agitation, history of aggressive behavior and delusional psychosis with chronic dementia and anemia of chronic disease. PLAN: At present is to continue Ativan 0.5 mg t.i.d. p.r.n. anxiety, Depakote 750 mg p.o. at bedtime and Depakote 500 mg p.o. daily, Geodon 20 mg IM q.8 h. p.r.n. agitation, Seroquel 100 mg p.o. daily and Seroquel 300 mg p.o. at bedtime. He continues on heart healthy diet and ultimate plan will be to return this patient to [place] environment at the [facility] in [place], [place], for his medical and psychiatric care and follow up. The patient's overall prognosis is poor but stable at present. Ultimate discharge date will be decided by psychiatrist Dr. Ashley Mojica. Celeste Boykin MD [facility] CENTERMeeta
--- NOTE | 2016-12-18 16:07 | PCM.PYCHPN ---
Psychiatric Progress Note - Psychiatric Progress Note Patient seen today, length of contact: 30min Patient Chief Complaint: "I am fine, I don't bother nobody, nobody is bothering me" Problems Identified/Issues Discussed: Suicide/ homicide prevention, past psychiatric h/o, current psychiatric symptoms , medical problems, risk/benefits and alternatives of medications, medications compliance, coping strategies, substance abuse h/o, relapse prevention, importance of follow up with psychiatrist and therapist, discharge plan. Medical Problems: dementia, constipation Diagnostic Results: Lab Results 12/15/16 06:00: TSH 3rd Generation 2.41 12/15/16 06:00: Fasting Glucose 85, Triglycerides 177 H, Cholesterol 211 H, LDL Cholesterol Direct 145 H, HDL Cholesterol 40 Vital Signs Temp Pulse Resp BP 12/16/16 06:45 98.7 F 54 L 134/74 12/15/16 16:46 64 125/69 12/14/16 16:53 67 121/80 12/14/16 13:20 17 Temp Pulse Resp BP Pulse Ox 97.4 F L 66 20 102/62 12/18/16 06:37 12/18/16 06:37 12/18/16 06:37 12/18/16 06:37 Laboratory Results - last 72 hr 12/18/16 07:30 Valproic Acid 76 DSM 5 Symptoms Update: Shortly pt is 71 yo male with reported h/o Alzheimer's dementia with behavioral disturbances, ?h/o bipolar disorder, ?multiple psychiatric admissions in the past, most recent was in September 2016, pt was sent from the [facility] for evaluation change in mental status, pt was aggressive, agitated, psychotic in [place] , was throwing, breaking things, pt broke a glass wall, pt was admitted on the medical side for AMS, was stabilized, then was offered admission, pt sign consent for tx yesterday, all meds resumed and adjusted. Pt needs further evaluation and stabilization, pt required frequent IMs on the med side, was found to be in threat to self and others. this feature writer is very familiar with this pt from the last admission, pt was seen in his room with the nurse pharmacy manager Chela. Patient presented to be sleepy, disorganized in his thoughts, sometimes difficult to to express himself, patient said "I do not bother anybody, nobody is bothering me". As per staff reported patient has periods of being loud in the unit, disorganized thought process, pt was observed talking to the cup next to him yesterday, but no physical aggression, no agitation. Depakote level therapeutic, no signs of toxicity. pt tolerated meds well, no side effects observed or reported. AIMS 0, no EPS. Impression: h/o shcizophrenia vs schizoaffective disorder bipolar type demenita Medication Change: No Medical Record Reviewed: Yes Consults ordered or reviewed: medical f/u was called Mental Status Examination - Cognitive Function Orientation: Person, Place Memory: Impaired (pt is demented ) Attention: Poor Concentration: Poor Association: Loose Fund of Knowledge: Poor - Mood Mood: Depressed - Affect Affect: Constricted (at times irritable, angry) - Formal Thought Process Formal Thought Process: Hallucinations, Delusions, Paranoia, Loosening of associations - Suicidal Ideation Suicidal Ideation: No - Homicidal Ideation Homicidal Ideation: No Goal/Treatment Plan - Goal/Treatment Plan Need for Continued Stay: Remain at risks for inpatient hospitalization, Severe depression anxiety, Discharge may exacerbated symptoms, Severe functional impairment Progress Toward Problem(s) and Goals/Treatment Plan: milieu/structure/supportive therapy family involvement meds reviewed, resumed Divalproex [Depakote ER(ONCE DAILY)] 500 mg PO DAILY for mood stabilization Divalproex [Depakote ER(ONCE DAILY)] 750 mg PO HS for mood stabilization will f/u on the depakote level 12/18/16 78 QUEtiapine [Seroquel XR] [address] for psychosis and mood stabilization seroquel 100mg po am for psychosis and mood stabilization Bisacodyl [Fast Relief Laxative] 10 mg RC Zaleplon [Sonata] 5mg PO HS Ziprasidone HCl [Geodon] 20 mg PO Q6H PRN geodon IM 20mg q8hr prn for agitation LORazepam [Ativan] 0.5 mg PO TID PRN for agitation and anxiety medical f/u family involvement SW evaluation will monitor closely Estimated Date of D/C: 12/20/16 (will monitor closely)
[2016-12-18] MEDS: Divalproex 250 mg ER (ONCE DAILY formulation) PO SCH (21:28)
[2016-12-18] MEDS: QUEtiapine 300 mg XR Tab PO SCH (21:28)
[2016-12-19] MEDS: Divalproex 500 mg ER (ONCE DAILY formulation) PO SCH (08:15)
--- NOTE | 2016-12-19 14:20 | PN ---
DATE: 12/19/2016. SUBJECTIVE: This 71-year-old male remains hospitalized in the physiatric berry under the direction of Dr. Ashley Mojica. He was admitted for aggressive behavior, agitation, and delusional psychosis and remains chronically confused. PHYSICAL EXAMINATION: VITAL SIGNS: Today, his temperature 97.5, respirations 19, pulse 64, and blood pressure 115/69 with a pulse ox of 97% on room air. HEENT: Head is normocephalic and atraumatic. Eyes, no icterus. NECK: Supple. HEART: Regular. S1 and S2. LUNGS: Clear. ABDOMEN: Soft. EXTREMITIES: No edema. SKIN: Without rash NEUROLOGIC: No change. PSYCHOLOGIC: Alert. VASCULAR: Legs warm to touch. LABORATORY DATA: Random glucose was 85. Random cholesterol 211. TSH was 2.41 normal and his valproic acid level was normal at 76 with normal 50 to 100. IMPRESSION: A 71-year-old male with chronic paranoid schizophrenia now with episodes of delusional psychosis, depression, agitation, and comorbidities of anemia of chronic disease. I have spoken with the patient's nurse, Amie Lopez, Registered Nurse and I have asked her that when the patient returns to [place] care at [facility] to inform his floor nurse and charge nurse to have the patient recommended for colonoscopy by his PMD if not done and when medically stable. All of this was discussed with the patient and hopefully he will be compliant with his recommendation, although he refuses consideration of colonoscopy or endoscopy at present. Celeste Boykin MD [facility]
--- NOTE | 2016-12-19 15:27 | PCM.PYCHPN ---
Psychiatric Progress Note - Psychiatric Progress Note Patient seen today, length of contact: 30min Patient Chief Complaint: "I am fine, I don't bother nobody, nobody is bothering me" Problems Identified/Issues Discussed: Suicide/ homicide prevention, past psychiatric h/o, current psychiatric symptoms , medical problems, risk/benefits and alternatives of medications, medications compliance, coping strategies, substance abuse h/o, relapse prevention, importance of follow up with psychiatrist and therapist, discharge plan. Medical Problems: dementia, constipation Diagnostic Results: Lab Results 12/15/16 06:00: TSH 3rd Generation 2.41 12/15/16 06:00: Fasting Glucose 85, Triglycerides 177 H, Cholesterol 211 H, LDL Cholesterol Direct 145 H, HDL Cholesterol 40 Vital Signs Temp Pulse Resp BP 12/16/16 06:45 98.7 F 54 L 134/74 12/15/16 16:46 64 125/69 12/14/16 16:53 67 121/80 12/14/16 13:20 17 Temp Pulse Resp BP Pulse Ox 97.4 F L 66 20 102/62 12/18/16 06:37 12/18/16 06:37 12/18/16 06:37 12/18/16 06:37 Laboratory Results - last 72 hr 12/18/16 07:30 Valproic Acid 76 Temp Pulse Resp BP Pulse Ox 97.5 F L 64 19 115/69 97 12/19/16 06:28 12/19/16 06:28 12/19/16 06:28 12/19/16 06:28 12/19/16 06:28 DSM 5 Symptoms Update: Shortly pt is 71 yo male with reported h/o Alzheimer's dementia with behavioral disturbances, ?h/o bipolar disorder, ?multiple psychiatric admissions in the past, most recent was in [place] September 2016, pt was sent from the [facility] for evaluation change in mental status, pt was aggressive, agitated, psychotic in [place] , was throwing, breaking things, pt broke a glass wall, pt was admitted on the medical side for AMS, was stabilized, then was offered admission, pt sign consent for tx yesterday, all meds resumed and adjusted. Pt needs further evaluation and stabilization, pt required frequent IMs on the med side, was found to be in threat to self and others. 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 pt started to go to groups, sometimes difficult to to express himself, but overall much improved since the time of admission.no physical aggression, no agitation. Depakote level therapeutic, no signs of toxicity. pt tolerated meds well, no side effects observed or reported. AIMS 0, no EPS. Impression: h/o shcizophrenia vs schizoaffective disorder bipolar type demenita Medication Change: No Medical Record Reviewed: Yes Consults ordered or reviewed: medical f/u was called Mental Status Examination - Cognitive Function Orientation: Person, Place Memory: Impaired (pt is demented ) Attention: Poor Concentration: Poor Association: Loose Fund of Knowledge: Poor - Mood Mood: Depressed - Affect Affect: Constricted (at times irritable, angry) - Formal Thought Process Formal Thought Process: Hallucinations, Delusions, Paranoia, Loosening of associations - Suicidal Ideation Suicidal Ideation: No - Homicidal Ideation Homicidal Ideation: No Goal/Treatment Plan - Goal/Treatment Plan Need for Continued Stay: Remain at risks for inpatient hospitalization, Severe depression anxiety, Discharge may exacerbated symptoms, Severe functional impairment Progress Toward Problem(s) and Goals/Treatment Plan: milieu/structure/supportive therapy family involvement meds reviewed, resumed Divalproex [Depakote ER(ONCE DAILY)] 500 mg PO DAILY for mood stabilization Divalproex [Depakote ER(ONCE DAILY)] 750 mg PO HS for mood stabilization will f/u on the depakote level 12/18/16 78 QUEtiapine [Seroquel XR] [address] for psychosis and mood stabilization seroquel 100mg po am for psychosis and mood stabilization Bisacodyl [Fast Relief Laxative] 10 mg RC Zaleplon [Sonata] 5mg PO HS Ziprasidone HCl [Geodon] 20 mg PO Q6H PRN geodon IM 20mg q8hr prn for agitation LORazepam [Ativan] 0.5 mg PO TID PRN for agitation and anxiety medical f/u family involvement SW evaluation will monitor closely most likely will be d/c tomorrow Estimated Date of D/C: 12/20/16 (will monitor closely)
[2016-12-19] MEDS: QUEtiapine 300 mg XR Tab PO SCH (21:40)
[2016-12-19] MEDS: Divalproex 250 mg ER (ONCE DAILY formulation) PO SCH (21:40)
[2016-12-20 07:07] VITALS: BP 143/90; PULSE 88; RESP 20; TEMP 98; O2SAT 96
[2016-12-20] MEDS: Divalproex 500 mg ER (ONCE DAILY formulation) PO SCH (08:17)
--- NOTE | 2016-12-20 12:03 | PN ---
DATE: 12/20/2016 SUBJECTIVE: This 71-year-old male who was examined at his bedside in the presence of his nurse, Michel Gonsales. The patient remains confused. He had an episode of agitation and anxiety yesterday, was medicated by the psychiatric nursing staff, and is being treated for chronic paranoid schizophrenia, delusional psychosis, anxiety, and depression. The patient denied any fever, chills, chest pain, or shortness of breath. PHYSICAL EXAMINATION: VITAL SIGNS: Temperature was 98.0, respirations 20, pulse 88, and blood pressure 143/90 with a pulse ox of 96% on room air. HEENT: Head is normocephalic and atraumatic. Eyes; no icterus. NECK: Supple. HEART: Regular. S1 and S2. LUNGS: Clear. ABDOMEN: Soft. EXTREMITIES: No edema. SKIN: Without rash. NEUROLOGIC: Intact. PSYCHOLOGIC: Alert. VASCULAR: Legs warm to touch. IMPRESSION: This is a 71-year-old male with anemia of chronic disease, comorbidities of chronic paranoid schizophrenia, agitation, delusional psychosis, anxiety neurosis, and history of aggressive behavior. PLAN: The plan is to continue heart healthy bland diet. He continues on Ativan 0.5 mg p.o. t.i.d., Depakote 750 mg p.o. at bedtime, Depakote 500 mg p.o. daily, Geodon 20 mg IM q.8 hours p.r.n. agitation, Seroquel 100 mg p.o. daily, and Seroquel 300 mg p.o. at bedtime. The patient will return to the [facility] for his nursing home care when cleared for discharge by psychiatrist Dr. Ashley Mojica. He is receiving physical therapy for ambulation safety and although the patient currently refuses any consideration of endoscopy or colonoscopy.it is advised that this be considered when he is more psychologically stable if not already done in his recent past and when he agrees. All of this was discussed in detail with the patient and his nurse at the bedside. Overall, prognosis though poor and stable at present. Celeste Boykin MD [facility] # [id number]
--- NOTE | 2016-12-20 14:04 | PCM.PYCHDC ---
Mental Status Examination - Mental Status Examination Orientation: Person, Place (pt knows that he is in the hospital) Memory: Impaired (pt has Alzheimer's dementia) Mood: Neutral Affect: Constricted (but reactive, mood congruent) Speech: Appropriate (at times loud) Attention: Poor (baseline with improvement) Concentration: Poor (baseline with improvement) Association: Loose Fund of Knowledge: Poor Formal Thought Process: Delusions (chronic, but no agitation or aggression) Description of patient's judgement and insight: insight is improved, but still impaired, behavior is much improved. Psychotic Thoughts and Behaviors: chronic delusions, but with much improvement Suicidal Ideation: No Current Homicidal Ideation?: No Plan: pt adamantly denied thoughts of harming self or others denied intent or plan. no signs of aggression or agitation. compliance with meds is good Discharge Summary - Discharge Note Reason for Hospitalization: pt was transferred from the medical floor where he was admitted for AMS, pt was found psychotic, disorganized, need to have IM PRN medications, pt deemed to be in danger to self and others, needs further evaluation and stabilization, meds adjustment. Psychiatric History (includes Medical, Family, Personal Hx): see HPI Laboratory Data: Lab Results 12/18/16 07:30: Valproic Acid 76 12/15/16 06:00: TSH 3rd Generation 2.41 12/15/16 06:00: Fasting Glucose 85, Triglycerides 177 H, Cholesterol 211 H, LDL Cholesterol Direct 145 H, HDL Cholesterol 40 Vital Signs Temp Pulse Resp BP Pulse Ox 12/20/16 07:04 98.0 F 88 20 143/90 96 12/19/16 16:00 67 124/68 12/19/16 06:28 97.5 F L 64 19 115/69 97 12/18/16 06:37 97.4 F L 66 20 102/62 12/17/16 16:19 76 139/76 12/17/16 06:58 97.4 F L 61 20 120/74 12/16/16 16:30 97.8 F 60 113/69 12/16/16 06:45 98.7 F 54 L 134/74 12/15/16 16:46 64 125/69 12/14/16 16:53 67 121/80 12/14/16 13:20 17 Consultations:: List each consultation separately and include: 1. Reason for request. 2. Findings. 3. Follow-up Consultations: medical f/u was called see note for more detailed information medical team recommended to have a colonoscopy as outpatient within one month Summary of Hospital Course include:: 1. Description of specific treatment plan utilized for patients during their course of treatmen. 2. Summarize the time- course for resolution of acute symptoms and/or regressed behaviors. 3. Describe issues identified and worked on during hospitalization. 4. Describe medication utilized. 5. Describe medical problems identified and treated. 6. Reassessment of suicide risk Summary of Hospital Course: Shortly pt is 71 yo male with reported h/o Alzheimer's dementia with behavioral disturbances, ?h/o bipolar disorder, ?multiple psychiatric admissions in the past, most recent was in September 2016, pt was sent from the [facility] for evaluation change in mental status, pt was aggressive, agitated, psychotic in [place] , was throwing, breaking things, pt broke a glass wall, pt was admitted on the medical side for AMS, was stabilized, then was offered admission, pt sign consent for tx yesterday, all meds resumed and adjusted. Pt needs further evaluation and stabilization, pt required frequent IMs on the med side, was found to be in threat to self and others. this production underwriter is very familiar with this pt from the last admission,initially pt was seen in his room today with NORMA Aadn, pt has acceptable personal hygiene, appeared careless about his hygiene, fair ADLs. pt was interviewed with Northern Irish speaking NORMA Adan. Pt presented to be psychotic, disorganized, paranoid, but with some mild improvement, pt said that he does not feel that he is having any special de anda. initially pt presented to be emotionally labile, at times screams and yells, at times calm. pt seems to have loud voice. pt denied v/a/t hallucinations, denied paranoid ideation, but obviously psychotic.. Impulse control is unpredictable and his insight and judgment are poor. pt denied using alcohol, denied drugs, denied smoking. past psych h/o: h/o bipolar, h/o Alzheimer's dementia with behavioral disturbances. 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 family h/o: not known. Lab Results 12/15/16 06:00: TSH 3rd Generation 2.41 12/15/16 06:00: Fasting Glucose 85, Triglycerides 177 H, Cholesterol 211 H, LDL Cholesterol Direct 145 H, HDL Cholesterol 40 Vital Signs Pulse Resp BP 12/14/16 16:53 67 121/80 12/14/16 13:20 17 pt was stabilized on the following meds: Divalproex [Depakote ER(ONCE DAILY)] 500 mg PO DAILY for mood stabilization Divalproex [Depakote ER(ONCE DAILY)] 750 mg PO HS for mood stabilization depakote level 12/18/16 76 QUEtiapine [Seroquel XR] [address] for psychosis and mood stabilization seroquel 100mg po am for psychosis and mood stabilization Zaleplon [Sonata] 5mg PO HS Ziprasidone HCl [Geodon] 20 mg PO Q6H PRN LORazepam [Ativan] 0.5 mg PO TID PRN for agitation and anxiety pt tolerated meds well, no side effects observed or reported. AIMS 0, no EPS. pt improved significantly no agitation or aggression compliance with meds good pt participated in groups, mostly observing pt deems ready for discharge. At the time of the discharge pt denied been depressed, denied thoughts of harming self or others, mildly confused (chronic), has memory problems, was considered to pose no threat to self or others, will be following up with psychiatrist in the [place], information about follow up appointment, time and address provided to the pt, it is [place] to provide pt with all follow up appts PMD as well as specialists (see SW note for more detailed information). In case [place] will need to obtain results of studies pending at discharge pt was provided with contact information of Psychiatric Inpatient unit [phone] as well as Medical Record Department [phone]. Nicotine patch was offered, pt does not want to have it as per medical team recommendation, pt needs to have a colonoscopy because pt is anemic (within one month) pt also needs to have PT evaluation at the [place] facility within 24hrs (pt at times walks unsteady, no falls) pt was provided with prescriptions for all of medications (please see medication reconciliation form) Pt was educated about safety plan in case of worsening of symptoms or in case of suicidal or homicidal ideation call 911 or go to the nearest ER, also was educated to take meds as prescribed and stay away from drugs, pt verbalized understanding. - Diagnosis (1) Schizoaffective disorder, bipolar type Current Visit: Yes Status: Chronic Priority: Medium (2) Alzheimer's dementia with behavioral disturbance Current Visit: Yes Status: Chronic Priority: Medium (3) Altered mental status Current Visit: No Status: Acute - Final Diagnosis (DSM 5) Condition upon Discharge: GOOD Disposition: HOME/ ROUTINE Follow-up Treatment Plan: At the time of the discharge pt denied been depressed, denied thoughts of harming self or others, mildly confused (chronic), has memory problems, was considered to pose no threat to self or others, will be following up with psychiatrist in the [place], information about follow up appointment, time and address provided to the pt, it is [place] to provide pt with all follow up appts PMD as well as specialists (see SW note for more detailed information). In case [place] will need to obtain results of studies pending at discharge pt was provided with contact information of Psychiatric Inpatient unit [phone] as well as Medical Record Department [phone]. Nicotine patch was offered, pt does not want to have it as per medical team recommendation, pt needs to have a colonoscopy because pt is anemic (within one month) pt also needs to have PT evaluation at the [place] facility within 24hrs (pt at times walks unsteady, no falls) pt was provided with prescriptions for all of medications (please see medication reconciliation form) Pt was educated about safety plan in case of worsening of symptoms or in case of suicidal or homicidal ideation call 911 or go to the nearest ER, also was educated to take meds as prescribed and stay away from drugs, pt verbalized understanding. - Smoking Cessation Smoking Cessation Medication prescribed: No Reason for not providing: pt refused - Antipsychotic Medications Pt discharged on 2 or more routine antipsychotic medications: No
== END 2016-12-20 15:15 | DRG 885 ==
LOC: PSYC 12:48
PROVIDERS: ADMIT Psychiatry & Neurology Psychiatry; ATTEND Psychiatry & Neurology Psychiatry
DX: F23 Brief psychotic disorder (principal); G30.9 Alzheimer's disease, unspecified; F02.81 Dementia in other diseases classified elsewhere, unspecified severity, with behavioral disturbance; D63.8 Anemia in other chronic diseases classified elsewhere; E78.5 Hyperlipidemia, unspecified; F09 Unspecified mental disorder due to known physiological condition; F20.0 Paranoid schizophrenia; F25.0 Schizoaffective disorder, bipolar type; F41.1 Generalized anxiety disorder; K59.00 Constipation, unspecified; Z79.899 Other long term (current) drug therapy; G47.00 Insomnia, unspecified; F32.89 Other specified depressive episodes